=== PATIENT | female | born 1935 | race Caucasian/White ===

== ENCOUNTER → 2016-09-07 | Outpatient (CLI) | payer OTHER, BC | LOC: MMPC 11:11 | PROVIDERS: ATTEND Internal Medicine | DX: M06.9 Rheumatoid arthritis, unspecified (principal); E03.9 Hypothyroidism, unspecified | CPT/HCPCS: 99214; G0463 ==

== ENCOUNTER → 2016-10-29 | Outpatient (CLI) | payer OTHER, BC ==
[2016-10-29 15:11] LABS: BASOPHILS # (AUTO) 0.01 10*3/UL; BASOPHILS % (AUTO) 0.1 % (0-1); EOSINOPHILS # (AUTO) 0.06 10*3/UL; EOSINOPHILS % (AUTO) 0.5 % (0-8); HEMATOCRIT 46.1 % (37.0-47.0); HEMOGLOBIN 14.9 g/dL (12.0-16.0); LYMPHOCYTES # (AUTO) 0.91 10*3/uL; MEAN CORPUSCULAR HEMOGLOBIN 31.9 PG (27-31); MEAN CORPUSCULAR HGB CONC 32.3 g/dL (33-37); MEAN PLATELET VOLUME 10.3 FL (7.4-12.2); MONOCYTES % (AUTO) 3.7 % (5-15); NEUTROPHILS # (AUTO) 9.51 10*3/UL; NEUTROPHILS % (AUTO) 87.2 % (50-80); RED BLOOD COUNT 4.67 10^6/uL (4.20-5.40)
[2016-10-29 15:20] LABS: PLATELET MORPHOLOGY COMMENT NORMAL MORPHOLOGY (NORM); RBC MORPHOLOGY COMMENT NORMAL MORPHOLOGY (NORM); WBC MORPHOLOGY COMMENT NORMAL MORPHOLOGY (NORM)
[2016-10-29 15:34] LABS: C-REACTIVE PROTEIN 0.6 mg/dL (0.0-0.9); CALCIUM 9.6 mg/dL (8.7-10.7); SERUM ALBUMIN 4.1 g/dL (3.5-4.8)
[2016-10-29 16:19] LABS: ERYTHROCYTE SEDIMENTATION RATE 7 MM/HR (0-20)
== END ==
LOC: LAB 14:38
PROVIDERS: ATTEND Internal Medicine
DX: E03.9 Hypothyroidism, unspecified (principal); M06.89 Other specified rheumatoid arthritis, multiple sites
CPT/HCPCS: 36415; 80053; 84443; 85025; 85652; 86140

== ENCOUNTER → 2016-11-02 | Outpatient (CLI) | payer OTHER, BC | LOC: MMPC 11:11 | PROVIDERS: ATTEND Internal Medicine | DX: M06.9 Rheumatoid arthritis, unspecified (principal); I95.1 Orthostatic hypotension | CPT/HCPCS: 99214; G0463 ==

== ENCOUNTER → 2017-01-06 | Outpatient (CLI) | payer OTHER, BC ==
[2017-01-06 16:35] LABS: C-REACTIVE PROTEIN 0.9 mg/dL (0.0-0.9); CALCIUM 9.2 mg/dL (8.7-10.7); SERUM ALBUMIN 3.9 g/dL (3.5-4.8)
== END ==
LOC: MOB LAB 15:03
PROVIDERS: ATTEND Internal Medicine
DX: M80.08XD Age-related osteoporosis with current pathological fracture, vertebra(e), subsequent encounter for fracture with routine healing (principal); M06.89 Other specified rheumatoid arthritis, multiple sites
CPT/HCPCS: 36415; 80053; 85652; 86140; 99214; G0463

== ENCOUNTER → 2017-01-14 | Outpatient (CLI) | payer OTHER, BC | LOC: MMPC 11:11 | PROVIDERS: ATTEND Internal Medicine | DX: M81.0 Age-related osteoporosis without current pathological fracture (principal) | CPT/HCPCS: G0463; J0897 ==

== ENCOUNTER → 2017-02-01 | Outpatient (CLI) | payer OTHER, BC | LOC: MMPC 11:11 | PROVIDERS: ATTEND Internal Medicine | DX: M06.9 Rheumatoid arthritis, unspecified (principal); E03.9 Hypothyroidism, unspecified; C44.310 Basal cell carcinoma of skin of unspecified parts of face | CPT/HCPCS: 99214; G0463 ==

== ENCOUNTER → 2017-02-23 | Outpatient (CLI) | payer OTHER, BC ==
[2017-02-23 15:50] LABS: BASOPHILS # (AUTO) 0.05 10*3/UL; BASOPHILS % (AUTO) 0.7 % (0-1); EOSINOPHILS # (AUTO) 0.35 10*3/UL; EOSINOPHILS % (AUTO) 4.6 % (0-8); HEMATOCRIT 43.6 % (37.0-47.0); HEMOGLOBIN 14.3 g/dL (12.0-16.0); LYMPHOCYTES # (AUTO) 0.95 10*3/uL; MEAN CORPUSCULAR HEMOGLOBIN 30.5 PG (27-31); MEAN CORPUSCULAR HGB CONC 32.8 g/dL (33-37); MEAN PLATELET VOLUME 9.4 FL (7.4-12.2); MONOCYTES # (AUTO) 0.56 10*3/UL (0.3-0.8); MONOCYTES % (AUTO) 7.4 % (5-15); NEUTROPHILS # (AUTO) 5.68 10*3/UL; NEUTROPHILS % (AUTO) 74.5 % (50-80); RED BLOOD COUNT 4.69 10^6/uL (4.20-5.40)
[2017-02-23 15:59] LABS: PLATELET MORPHOLOGY COMMENT NORMAL MORPHOLOGY (NORM); RBC MORPHOLOGY COMMENT NORMAL MORPHOLOGY (NORM); WBC MORPHOLOGY COMMENT NORMAL MORPHOLOGY (NORM)
[2017-02-23 16:58] LABS: ERYTHROCYTE SEDIMENTATION RATE 23 MM/HR (0-20)
== END ==
LOC: LAB 15:28
PROVIDERS: ATTEND Internal Medicine
DX: M06.842 Other specified rheumatoid arthritis, left hand (principal); M06.841 Other specified rheumatoid arthritis, right hand
CPT/HCPCS: 36415; 82150; 82550; 85025; 85652; 86140

== ENCOUNTER → 2017-04-07 | Outpatient (CLI) | payer OTHER, BC | LOC: MMPC 11:11 | PROVIDERS: ATTEND Surgery | DX: L98.9 Disorder of the skin and subcutaneous tissue, unspecified (principal) | CPT/HCPCS: 99212; G0463 ==

== ENCOUNTER 2018-07-20 11:28 | Observation (INO) ==
[2018-07-20 12:34] LABS: BLOOD UREA NITROGEN 13 mg/dL (7-22); SERUM ALBUMIN 4.2 g/dL (3.5-4.8)
[2018-07-20 12:35] LABS: BASOPHILS # (AUTO) 0.01 10*3/UL; BASOPHILS % (AUTO) 0.1 % (0-1); EOSINOPHILS # (AUTO) 0.06 10*3/UL; EOSINOPHILS % (AUTO) 0.7 % (0-8); Hemoglobin [HGB] 14.5 g/dL (12.0-16.0); LYMPHOCYTES # (AUTO) 0.73 10*3/uL; MEAN CORPUSCULAR HGB CONC 32.2 g/dL (33-37); MEAN CORPUSCULAR VOLUME 93.2 FL (81-99); MEAN PLATELET VOLUME 10.1 FL (7.4-12.2); MONOCYTES % (AUTO) 4.8 % (5-15); NEUTROPHILS # (AUTO) 7.07 10*3/UL; NEUTROPHILS % (AUTO) 85.5 % (50-80); RED BLOOD COUNT 4.83 10^6/uL (4.20-5.40)
[2018-07-20 12:45] LABS: PLATELET MORPHOLOGY COMMENT NORMAL MORPHOLOGY (NORM); RBC MORPHOLOGY COMMENT NORMAL MORPHOLOGY (NORM); WBC MORPHOLOGY COMMENT NORMAL MORPHOLOGY (NORM)
--- NOTE | 2018-07-20 12:51 | DI ---
XR HIP COMPLETE MIN 2VW U/L 07/20/2018 12:00 PM History: [facility] [place] DI ^trauma; pain Comparison: 07/15/2006. Findings: AP view of the pelvis and AP/crosstable lateral views of the left hip are submitted. Diffus e demineralization of the osseous structures limits evaluation of fine anatomic detail. There is no e vidence of acute fracture, aggressive bone lesion, or focal periostitis. Alignment is anatomic. There are early degenerative changes of the bilateral hips. There are degenerative changes of the lumbar s pine. Atheromatous vascular calcifications are noted. The soft tissues are otherwise unremarkable. Impression: 1. No acute osseous abnormality. 2. Early degenerative changes of the bilateral hips.
--- NOTE | 2018-07-20 13:12 | DI ---
XR L-SPINE 2-3 VW 07/20/2018 12:01 PM History: [facility] [place] DI ^trauma; fall Comparison: 07/22/2015. Findings: AP and crosstable lateral views of the lumbar spine are submitted. Diffuse demineralization of the osseous structures limits evaluation of fine anatomic detail. There is transitional lumbosacr al anatomy with hypoplastic T12 ribs, and a fused right L5 transverse process, and a pseudarthrosis o n the left at the L5 level. The L5/S1 intervertebral disc space is essentially fused. There is no mitra dence of acute fracture or subluxation. Vertebral body heights are preserved. Early multilevel degen erative endplate changes are noted. Facet arthrosis is most conspicuous in the lower lumbar spine. At heromatous vascular calcifications are present. The visualized soft tissues are otherwise unremarkabl e. Impression: 1. No acute osseous abnormality. 2. Transitional lumbosacral anatomy. 3. Early multilevel degenerative disc disease.
[2018-07-20] MEDS ORDERED: LIDOCAINE HCL 2 % 10 ML JELLY URO-JECT TOPICAL PRN ×2 (13:13→15:42)
[2018-07-20 13:14] LABS: BILIRUBIN,URINE NEGATIVE (NEG); CLARITY,URINE CLEAR (CLEAR); COLOR,URINE YELLOW (Y); GLUCOSE, URINE (UA) NEGATIVE (NEG); OCCULT BLOOD,URINE Trace-intact (NEG); PROTEIN,URINE NEGATIVE (NEG); UROBILINOGEN,URINE 0.2 EU/dL (0.2)
[2018-07-20 13:18] LABS: SQUAMOUS EPITHELIAL CELL,UR FEW; URINE SAMPLE TYPE CATH SPECIMEN
--- NOTE | 2018-07-20 13:30 | EKG ---
[address] [address] Measurements Intervals [place] Rate: 78 P: 80 [place]: 143 QRS: 73 QRSD: 78 T: 71 QT: 400 QTc: 433 Interpretive Statements SINUS RHYTHM VOLTAGE CRITERIA FOR LVH Compared to ECG 02/04/2013 10:12:28 Short [place] interval no longer present T-wave abnormality no longer present Electronically Signed On 07-20-18 14:47:31 MST by Michael Delacruz [email or web address]
--- NOTE | 2018-07-20 14:28 | PDOC ---
Back Pain / Injury HPI - General Chief Complaint: Neck / Back Complaint Stated Complaint: low back and right hip pain Date Seen by Provider: 07/20/18 Time Seen by Provider: 11:15 Source: Patient, EMS, Other () Exam Limitations: POSITIVE: No limitations Nurse's Notes Reviewed & Considered: Yes EMS Report Reviewed & Considered: Verbal - History of Present Illness Initial Comments: The patient is an 82-year-old female who is brought to the emergency room by ambulance. Patient states that she was being helped to the bathroom by her 2 days ago and she lost her balance 10 fell onto her right hip and lower back. She states that since that time she has had pain in her right hip and lower back, mainly the right paralumbar area. She states she has had a great deal of pain getting out of bed and her has had to help her ambulate. She complains of right hip pain with ambulation. She denies any associated head neck chest abdominal or upper extremity trauma or symptoms. Patient states that today she was not able to walk, and so the ambulance was called and the ambulance brought her to the emergency room. 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) Severity: Moderate Quality: REPORTS: "Pain" Context: REPORTS: Fall (From standing position) Location at Time of Onset: REPORTS: Home Modifying Factors: improves with: Palpation, Movement, Walking Associated Symptoms: REPORTS: Back pain, Other (Right hip pain) Similar Symptoms Previously: No Recent Care Received: REPORTS: Denies Any Prior Injuries Related to Current Complaint?: Yes (as above) - Patient Home Medications Home Medications: Home Medications Ca Carbonate/Vitamin D3/Vit K [Viactiv Soft Chew Tablet] 1 ea PO BID 12/13/11 Multivitamins W-Minerals/Lut [Centrum Silver Tablet] 1 tab ORAL QD tab 12/13/11 Cetirizine HCl [Zyrtec] 10 mg PO PRN PRN #30 tab 05/08/15 Diclofenac Sodium [Voltaren] 4 gm TOPICAL QID #1 tube 11/04/15 methotrexate sodium 2.5 mg tablet 2.5 mg PO 2XW tab 02/10/18 metoprolol succinate ER 25 mg tablet,extended release 24 hr 25 mg PO BID #180 tab 02/10/18 omega-3 fatty acids-fish oil 300 mg-1,000 mg capsule 1 cap PO BID cap 02/10/18 levothyroxine 50 mcg tablet 50 mcg PO QDAY #30 tab 03/06/18 folic acid 1 mg tablet 1 mg PO QDAY #30 tab 05/11/18 - Patient Allergies Allergies/Adverse Reactions: Allergies Allergy/AdvReac Type Severity Reaction Status Date / Time nabumetone [Nabumetone] Allergy Intermediate rash Verified 07/20/18 11:40 darifenacin hydrobromide AdvReac Intermediate vertigo Verified 07/20/18 11:40 [From Enablex] simvastatin AdvReac Intermediate muscle Verified 07/20/18 11:40 cramps Past Medical History - heen HEENT History: Cataracts Additional HEENT History: PT WEARS GLASSES Cardiovascular History: Hypertension, Hyperlipidemia Respiratory History: Denies History, Pneumonia Additional Respiratory History: HX OF PNEUMONIA 01/2013 Gastrointestinal History: Diverticulitis Genitourinary History: Denies History Additional Genitourinary History: PT REPORTS HAVING, "A WEAK BLADDER". 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 Blood Disorders: Denies History Psychiatric History: Denies History History of Sexually Transmitted Diseases: No Cancer History: Breast Cancer Treatment / Date(s) of Treatment: LUMPECTOMY 2005 In Past Year Been Physically Harmed or Verbally Threatened: No History of MDRO: No History of Other Communicable Diseases: No Tobacco Use: Former Smoker Alcohol Use: None In the Past 12 Months, Have Used or Abuse Any Substance: None Previous Surgical History: Yes Type / Date of Surgery: CATARACT EXT/ COLONOSCOPY/ RIGHT BREAST LUMPECTOMY WITH SENTINEL NODE BX/ REMOVAL OF OVARIAN CYST/ RHINOPLASTY/ SIGMOID COLECTOMY D/T DIVERTICULITIS Anesthesia Reactions: No Malignant Hyperthermia: No Significant Family History: Heart disease Past Medical History Reviewed: Reviewed - No Changes ROS - Limitations ROS Limitations: No Limitations Constitution: REPORTS: Denies Symptoms Cardiovascular: REPORTS: Denies Cardiac Symptoms Respiratory: REPORTS: Denies Resp Symptoms Neurological: REPORTS: Denies Neuro Symptoms Gastrointestinal: REPORTS: Denies GI Symptoms Endocrine: REPORTS: Denies Symptoms Musculoskeletal: REPORTS: Back Pain (Lower), Joint Pain (Right hip) Genitourinary: REPORTS: Denies Symptoms Eyes: REPORTS: Denies Symptoms ENT: REPORTS: Denies Symptoms Skin: REPORTS: Denies Skin Symptoms Lympathic: REPORTS: Denies Lympathic Symptoms Immunologic: POSITIVE: Denies Symptoms Psychiatric: POSITIVE: Denies Psych Symptoms Back Physical Assessment - General Appearance General Appearance: REPORTS: Alert, Cooperative, No Evidence of Trauma. DENIES: No Acute Distress ([id number] distress due to low back and right hip pain) - HEENT HEENT: POSITIVE: Head Inspection Nml, Eyes Inspection Nml, Ears Inspection Nml, Nose Inspection Nml, Oral/Dental Inspect. Nml, Pharynx Inspect. Nml, PERRL, EOMI - Pupil Size Pupil Size: 4 mm: Bilateral (PERRLA) - Neck Neck: POSITIVE: Non Tender, Painless ROM, Trachea Midline, Nexus Criteria Negative - Respiratory / CVS Respiratory / CVS: POSITIVE: Chest Non Tender, No Ecchymosis, Breath Sounds Normal, No Respiratory Distress, Heart Sounds Normal, Regular Rate/Rhythm - Abdomen Abdomen: Soft: (All Quadrants), Normal Bowel Sounds: (All Quadrants), Denies Tenderness: (All Quadrants), No Splenomegaly: (All Quadrants), No Hepatomegaly: (All Quadrants), No Guarding: (All Quadrants), No Rebound: (All Quadrants), No Palpable Pulse: (All Quadrants), No Palpabale Mass: (All Quadrants), No Distention: (All Quadrants), No Rigidity: (All Quadrants) - Back Back: REPORTS: No CVA Tenderness, Vertebral Pt. Tenderness, Limited ROM, See Diagram. DENIES: Non Tender (Tender on palpation paralumbar area), Painless ROM (Flexion of low back painful), No Vertebral Tenderness, CVA Tenderness (R), CVA Tenderness (L), Muscle Spasm - Skin Skin: REPORTS: Intact, Normal For Race, Warm, Dry, No Rash - Extremities Extremity Assessment: Non-Tender: (RUE), (LUE), (LLE), Normal ROM: (RUE), (LUE), (LLE), No Edema: (ALL), Normal Inspection: (RUE), (LUE), (LLE), No Swelling: (ALL), Pelvis Stable: (ALL), Normal Tendon Exam: (ALL), Tender: (RLE) (hip) Musculoskeletal: REPORTS: Back Pain, Joint Pain (Right hip) Peripheral Pulses: Radial (R): 2+, Radial (L): 2+, Dorsalis-pedis (R): 2+, D orsalis-pedis (L): 2+ - Neurological / Psychological Neuro / Psych: POSITIVE: Oriented X3, 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 Reports no acute fractures on CT scan of pelvis. X-ray lumbosacral spine shows demineralization and degenerative changes with no acute fracture seen. CBC and BMP: 07/20/18 12:07/20/18 12:02 Lab Results:: Laboratory Results 07/20/18 07/20/18 07/20/18 12:02 12:02 13:05 WBC 8.28 RBC 4.83 Hgb 14.5 Hct 45.0 MCV 93.2 MCH 30.0 MCHC 32.2 L RDW Std Deviation 52.4 H RDW Coeff of [place]ard 15.8 H Plt Count 269 MPV 10.1 Immature Gran % (Auto) 0.1 Neut % (Auto) 85.5 H Lymph % (Auto) 8.8 L [place] % (Auto) 4.8 L Eos % (Auto) 0.7 Baso % (Auto) 0.1 Immature Gran # (Auto) 0.01 Neut # (Auto) 7.07 Lymph # (Auto) 0.73 [place] # (Auto) 0.40 Eos # (Auto) 0.06 Baso # (Auto) 0.01 WBC Morphology Comment Normal morphology Plt Morphology Comment Normal morphology RBC Morph Comment Normal morphology Sodium 140 Potassium 5.0 Chloride 104 Carbon Dioxide 30 Anion Gap 6 BUN 13 Creatinine 0.4 L 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 BUN/Creatinine Ratio 32.50 H Glucose 106 Calculated Osmolality 289.0 Calcium 9.6 Total Bilirubin 0.8 AST 37 ALT 18 Alkaline Phosphatase 72 Total Protein 7.2 Albumin 4.2 Globulin 3.1 Albumin/Globulin Ratio 1.30 Ur Collection Type Cath specimen Urine Color Yellow Urine Clarity Clear Urine pH 7.0 Ur Specific [place] 1.015 Urine Protein Negative Urine Glucose (UA) Negative Urine Ketones 15 Urine Occult Blood Trace-intact H Urine Nitrate Negative Urine Bilirubin Negative Urine Urobilinogen 0.2 Ur Leukocyte Esterase Negative Urine RBC 1-3 Urine WBC 1-3 Ur Squamous Epith Cells Few Ur Renal Epithelial Cell None Urine Crystals None Urine Bacteria None Urine Casts None Urine Mucus Many Urine Trichomonas None Urine Yeast None Ur Culture Indicated? Culture not set EKG Interpreted/Reviewed By Me:: Yes (normal) EKG Interpretation:: POSITIVE: Normal Sinus Rhythm, Normal Rate, Normal Intervals, Normal [place], Normal QRS, Normal ST/T - Patient's Progress Re-Examine Time: 14:20 Re-Examine Comment: Results of radiologic and laboratory tests and electrocardiogram discussed with patient. Patient unable to bear weight to use the commode. Alternatives of treatment discussed. I do not feel it is safe to return the patient to home under the care of her frail elderly . Patient is admitted by hospitalist for further evaluation and treatment. Status: POSITIVE: Unchanged, Re-Examined - Consult Consult (If Yes, Name of Consulting MD & Time Called): Yes (Dr. Jorgensen, hospitalist, [id number]) Consulting MD will see pt:: POSITIVE: [facility] [place] [place] Admit Counseled: POSITIVE: Patient, Family, RE: Lab Results, RE: Radiology Results, RE: DX, RE: Need for F/U Patient Care Time - Estimated PCT Patient Care Time (In Minutes): 50 Vital Signs - Recent Vital Signs Vital Signs: Vital Signs (Last 8 hours) Temp Pulse Resp BP Pulse Ox 07/20/18 11:45 97 F 92 18 129/55 96 - VS Reviewed Vital Signs Reviewed: Yes Discharge Clinical Impression: Acute low back pain, Hip pain, Social environment related disease Condition: Fair Follow Up With: MAYKEL EUCEDA [Primary Care Provider] - Date Decision to Admit to Inpatient: 07/20/18 Time Decision to Admit to Inpatient: 14:20
--- NOTE | 2018-07-20 14:58 | DI ---
CT Pelvis WO Contrast 07/20/2018 1:14 PM History: [facility] [place] ^RIGHT HIP PAIN Comparison: Hip x-ray from earlier the same day. Technique: Noncontrast CT images of the pelvis were obtained from the pelvic brim through the lesser trochanters using bone and soft tissue algorithm in the axial, sagittal, and coronal planes. Findings: There is no acute osseous fracture or dislocation. There is no aggressive osseous lesion. E shahid degenerative changes of the bilateral hips are noted. There are degenerative changes of the lumb ar spine. Transitional L5 anatomy is noted with a fused transverse process and the right and a pseudo arthrosis on the left. There is a simple cyst in the lower pole of the right kidney. Hollow viscus organs demonstrate normal course and caliber. There is colonic diverticulosis without CT evidence of acute diverticulitis. The re is no free intraperitoneal air or fluid. The uterus is hypoplastic and the adnexa are unremarkable , though better evaluated with pelvic ultrasound. No pelvic lymphadenopathy is present. Vascular stru ctures are intact with extensive atheromatous calcifications. There is no inguinal or abdominal wall hernia. A Torres catheter is present in the decompressed urinary bladder. Impression: 1. No acute osseous abnormality. 2. Early bilateral hip osteoarthritis.
--- NOTE | 2018-07-20 15:03 | PDOC ---
HPI - History of Present Illness History of Present Illness: Is a very nice 82-year-old female lost her balance 2 days ago while she was a going to the bathroom and fell on the right hip and lower back she is been in excruciating pain since the fall and was brought to the ER by ambulance because she was unable to walk she does complain of pain on the right hip Past Medical History Medical History: Rheumatoid arthritis, hypertension, hyperlipidemia Tobacco Use: Former Smoker In the Past 12 Months, Have Used or Abuse Any of the Following Substance: None Medication / Allergies Home Medications: Home Medications Medication Instructions Recorded Confirmed Type Ca Carbonate/Vitamin D3/Vit K 1 ea PO BID 12/13/11 07/20/18 History [Viactiv Soft Chew Tablet] Multivitamins W-Minerals/Lut 1 tab ORAL QD tab 12/13/11 07/20/18 History [Centrum Silver Tablet] Cetirizine HCl [Zyrtec] 10 mg PO PRN PRN #30 tab 05/08/15 07/20/18 History Diclofenac Sodium [Voltaren] 4 gm TOPICAL QID #1 tube 11/04/15 07/20/18 History methotrexate sodium 2.5 mg tablet 2.5 mg PO 2XW tab 02/10/18 07/20/18 History metoprolol succinate ER 25 mg 25 mg PO BID #180 tab 02/10/18 07/20/18 Rx tablet,extended release 24 hr omega-3 fatty acids-fish oil 300 1 cap PO BID cap 02/10/18 07/20/18 History mg-1,000 mg capsule levothyroxine 50 mcg tablet 50 mcg PO QDAY #30 tab 03/06/18 07/20/18 Rx folic acid 1 mg tablet 1 mg PO QDAY #30 tab 05/11/18 07/20/18 Rx Allergies/Adverse Reactions: Allergies Allergy/AdvReac Type Severity Reaction Status Date / Time nabumetone [Nabumetone] Allergy Intermediate rash Verified 07/20/18 15:29 darifenacin hydrobromide AdvReac Intermediate vertigo Verified 07/20/18 15:29 [From Enablex] simvastatin AdvReac Intermediate muscle Verified 07/20/18 15:29 cramps Review of Systems - Review of Systems All Systems: Reviewed & No Additional Complaints Except as Stated - Respiratory Respiratory: DENIES: Negative System Review, Cough, Sputum, Dyspnea At Rest, Dyspnea with Exertion, Pleuritic Pain, Hemoptysis, Wheezing, Other, See HPI - Cardiovascular Cardiovascular: DENIES: Negative System Review, Chest Pain, Edema, Syncope, Palpitations, Orthopnea, Paroxysmal Nocturnal Dyspnea, Other, See HPI - Musculoskeletal Musculoskeletal: REPORTS: Joint Pain - Hips Exam - Vitals Vital Signs: Vital Signs Temperature 97 F Temperature Source Temporal Artery Scan Pulse Rate [Pulse Oximeter] 92 Respiratory Rate 18 Blood Pressure [Left Arm] 129/55 Pulse Ox 96 Oxygen Delivery Method Room Air Height 5 ft 3 in Weight 130 lb - General General Appearance: Cooperative - Respiratory Respiratory Exam: POSITIVE: Clear to Auscultation - Bilaterally, Breathing Non Labored, Normal To Percussion, Normal to Percussion and Palpation - Cardiovascular Cardiovascular Exam: POSITIVE: RRR, No Murmur, No Clicks, No Gallops, No Rubs, PMI Non-Displaced - GI/Abdominal GI/Abdominal Exam: POSITIVE: Normal Bowel Sounds, Non Tender, Non Distended, Soft, No Masses, No Hepatomegaly, No Splenomegaly, No Organomegaly - Extremities Extremities Exam: POSITIVE: No Clubbing Present, No Edema Present Additional Extremities Exam Details: Right hip pain - Neurological Neurological Exam: POSITIVE: Alert, Oriented x 3, No Facial Droop, Speech Intact / Clear Results - Labs CBC and BMP: 07/20/18 12:02 07/20/18 12:02 Assessment and Plan - Patient Problems (1) Acute low back pain Current Visit: Yes Status: Acute Comment: Admit patient for observation for control consult PTOT hydrate patient is well two-year other home meds Code(s): M54.5 - Low back pain (2) Hip pain Current Visit: Yes Status: Acute Code(s): M25.559 - Pain in unspecified hip (3) Acute low back pain Current Visit: No Status: Acute Onset Date: 12/22/11 Code(s): M54.5 - Low back pain
[2018-07-20] MEDS ORDERED: METHOTREXATE SODIUM 2.5 MG PO SCH (15:36)
[2018-07-20] MEDS ORDERED: DOCUSATE 100 MG CAPSULE PO PRN (15:36)
[2018-07-20] MEDS ORDERED: LIDOCAINE W/ SODIUM BICARB 0.5 ML SYR SUBD PRN (15:36)
[2018-07-20] MEDS ORDERED: MORPHINE SULFATE 2 MG/1 ML IVP PRN (15:36)
[2018-07-20] MEDS ORDERED: CALCIUM CARBONATE 500 MG (TUMS) CHEWABLE TABLET PO PRN (15:36)
[2018-07-20] MEDS ORDERED: ONDANSETRON 4 MG/2 ML VIAL IVP PRN (15:36)
[2018-07-20] MEDS: Lactated Ringers 1,000 ML PRIMARY IV SCH (15:48)
[2018-07-20] MEDS: HYDROcodone-APAP 5 MG -325 MG TABLET PO PRN ×2 (17:31→21:28)
[2018-07-20] MEDS: METOPROLOL SUCCINATE 25 MG SR 24H TABLET PO SCH ×2 (21:28→21:34)
[2018-07-20] MEDS: HEPARIN 5000 UNIT/1 ML SUBCUT SCH (21:28)
[2018-07-21] MEDS: Lactated Ringers 1,000 ML PRIMARY IV SCH ×2 (01:01→11:15)
[2018-07-21] MEDS: HYDROcodone-APAP 5 MG -325 MG TABLET PO PRN (04:08)
[2018-07-21] MEDS: HEPARIN 5000 UNIT/1 ML SUBCUT SCH ×3 (04:28→20:31)
[2018-07-21] MEDS: LEVOTHYROXINE 50 MCG TABLET PO SCH (04:29)
--- NOTE | 2018-07-21 10:20 | PDOC(PROG) ---
Date of Service: 07/21/18 Time of Service: 11:00 Interval History: Subjective Patient was brought to the hospital because she was complaining from pain in the lower back and also in the right hip. She said like 2 days prior she fell backwards and she was complaining from pain in her back she was unable to get up the medics came in and help her to get up. And then she was very unspecific about what happened after that but today she came in she was complaining from pain and she was unable to get up so she was admitted. Currently she is denying pain in the back. She said she received some pain medication earlier. However her main complaint now is dizziness and feeling sick. She did not get up since she's been here. she said she had a history of hydrocephalus. She has a cane and walker at home. She lives with her who seems to have dementia but she said he would do the shopping and the meals for her. She said she doesn't have children but she has a stepdaughter who lives in [place]. Objective : Data - Labs CBC and BMP: 07/20/18 12:02 07/20/18 12:02 Objective : Exam - General General Appearance: No Acute Distress, Cooperative - Head Head Exam: Normal Inspection - Eye Eye Exam: Normal Appearance - ENT ENT Exam: Normal Exam - Neck Neck Exam: Normal Inspection - Respiratory Respiratory Exam: Clear to Auscultation - Bilaterally - Cardiovascular Cardiovascular Exam: RRR - GI/Abdominal GI/Abdominal Exam: Normal Bowel Sounds, Non Tender, Non Distended, Soft, No Organomegaly - Rectal Rectal Exam: Deferred - External Exam: Deferred Exam: Deferred - Extremities Extremities Exam: Normal Inspection Additional Extremities Exam Details: She was able to bend her knees and hips and there is no evidence of pain. - Neurological Neurological Exam: Alert, Oriented x 3, No Facial Droop, Speech Intact / Clear, Moves All Extremities Equally - Psychiatric Psychiatric Exam: Normal Affect Assessment and Plan - Patient Problems (1) Acute low back pain Current Visit: No Status: Acute Onset Date: 12/22/11 Comment: Probably secondary to the fall. There is no evidence of fracture on the x-ray. Because of her symptoms of the dizziness and the sickness I think we'll switch her to tying all. May use Motrin later on. We'll ask PT and OT to work with her. We'll try to get records from Dr. Mensah as she said she had history of hydrocephalus. Did speak with the social media marketing specialist. Code(s): M54.5 - Low back pain (2) Benign hypertension Current Visit: No Status: None Comment: Same medications (3) Hypothyroidism Current Visit: No Status: None Comment: Same medication
[2018-07-21] MEDS: METOPROLOL SUCCINATE 25 MG SR 24H TABLET PO SCH ×2 (10:49→20:33)
[2018-07-21] MEDS: ACETAMINOPHEN 325 MG TABLET PO PRN ×2 (14:12→20:30)
--- NOTE | 2018-07-21 15:07 | PTI REPORT ---
Thank you for the referral of Ness Montes. She was seen on 07/21/18 for an inpatient evaluation secondary to weakness. SUBJECTIVE: The patient is an 82-year-old female who presented to the hospital secondary to a fall in her home. The patient states that she fell and landed on her right hip. She is having right hip and low back pain, but x-rays are negative for any fracture. The patient states that she lives here in [place] with her and they live in a four level house. The patient states that they have many stairs between all the different levels with the most being seven. The patient states that she has a walker on each level as she does have some balance problems, so she primarily uses a front wheeled walker to get around. The patient states that she hasn't had a fall in three years. The patient states that she is pretty dizzy today and it may be due to the medications that she has been having. The patient states that she wants to just rest this morning and does not want to get up. She states that the doctor said it was okay if she does not get out of bed. The patient also states that she does have a hearing issues which she feels is related to her balance, but nothing has been diagnosed. PAST MEDICAL HISTORY: Past medical history can be found in the patient's medical record. OBJECTIVE FINDINGS: General observations: The patient was alert and oriented to setting upon PT arrival. The patient was supine in bed with head of bed elevated. The patient did state that she was having some dizziness earlier today and she was willing to participate with therapy this morning if she did not have to get out of bed. The patient did not have any visible contusions around her right hip region from what PT could see from how she was laying in bed. Strength: Manual muscle testing was performed in a supine position for bilateral lower extremities. The patient demonstrated 4/5 strength in a supine position for bilateral lower extremities. The patient was able to perform a straight leg raise on both the left and the right sides and was able to go up higher on the right lower extremity. ASSESSMENT: The patient has fair rehab potential secondary to her age and compliance with therapy. Problem List: Decreased endurance/activity tolerance Poor balance Generalized weakness Short-Term Goals: To be met by discharge from inpatient: Patient will be able to transfer from bed to stand safely and independently. Patient will be able to ambulate at least 150 feet with front wheeled walker safely and independently. Patient will be able to tolerate 20 minutes of cardiovascular activity in order to improve her overall strength and endurance. Patient will be able to ascend and descend at least 7 steps safely and independently with appropriate assistive device. Long-Term Goals: To be met following discharge from inpatient: Patient may be seen by outpatient physical therapy if deemed necessary upon time of discharge. TREATMENT PLAN: Patient will be seen B.I.D during the week and one time per day over the weekend as an inpatient to address the above goals and objectives. INITIAL TREATMENT: Treatment today consisted of the initial evaluation activities only. GRETA
--- NOTE | 2018-07-21 16:24 | OTI REPORT ---
Thank you for the referral of Ness Montes. She was seen on 07/21/18 for an occupational therapy inpatient evaluation secondary to weakness. SUBJECTIVE: The patient is an 82-year-old female who is being seen secondary to falling at home in the bathroom. The patient reports that she falls at times. Her balance is bad and she thinks it is coming from her hears. The patient gets very dizzy frequently and her balance is off. She states quite frequently she has to hang onto items throughout the home if she is not using her wheeled walker in order to have safety and balance throughout the home. The patient lives in a four level home; however, she typically just utilizes three levels of the home. Prior to admission the patient reports that she was independent with her ADLs. The patient does live at home with her . The patient reports that her is still able to run errands for her. Her states that he can assist the patient. The patient's main complaint is the dizziness. The patient did not want to get out of bed and stated that the doctor said she needed to rest with the change in her medication. PAST MEDICAL HISTORY: Past medical history can be found in the patient's medical record. OBJECTIVE FINDINGS: General observations: The patient was supine in bed upon the therapist's arrival. Range of motion: The patient had within functional limits for active range of motion of her shoulder, elbow, and wrist. Strength: Her left shoulder was weaker than her right. Strength for left shoulder flexion was 3/5, right shoulder flexion was 3+/5, abduction on the left was 3/5, abduction on the right was 3+/5, elbow flexion/extension was 3+/5 on the left and 4/5 on the right, and wrist flexion/extension was 4/5 bilaterally. Pain: The patient reports that she has minimal pain in her upper extremities. The patient rates her pain as a 5/10 on the verbal analog scale (0=no pain, 10=worst pain). Bed mobility: Today the patient was refusing to transfer from supine to sitting edge of bed to assess her ADL skills. ASSESSMENT: It was hard to get a full assessment on the patient this morning. We will continue with more assessment materials this afternoon. The doctor has requested that we do a cognitive evaluation with this patient as there are concerns about her safety and well being at home. The is familiar to the therapist. The 's license should be revoked; however, he is still driving. It is questionable whether the is cognitively capable of caring for the patient. At this point the patient's balance is a concern as well as her description of her balance when the dizziness is there. The patient reports that she has to hang onto counters and other items throughout the home in order to keep her balance. The patient does have some other health concerns as well. It is likely that the patient and her would benefit from an assisted living type facility vs. living on their own. We will further assess this with the patient's cognitive status and further physical assessment. Problem List: Possible decreased cognition Decreased abilities to complete ADLs Dizziness Short-Term Goals: To be met by discharge from inpatient: Patient will increase upper extremity strength to 4+/5 throughout to improve strength for all ADLs and functional activities. Patient will participate in cognitive assessments to further assess her cognitive processing abilities. Patient will be able to complete a toilet transfer and toilet hygiene independently and safely. Patient will complete a shower and all showering tasks with modified independence and safety. Patient will be able to dress upper and lower extremities with increased time and modified independence. Long-Term Goals: To be met following discharge from inpatient: Patient will receive more assistance than what is being provided at this point in time to help her be independent and safe with all of her ADLs and functional tasks at home. TREATMENT PLAN: Patient will be seen B.I.D during the week and one time per day over the weekend as an inpatient to address the above goals and objectives. INITIAL TREATMENT: Treatment today consisted of the initial evaluation followed by bed mobility tasks including range of motion for the shoulders, elbows, and hands. One area that might be of concern is the patient's medication management. GRETA
--- NOTE | 2018-07-21 16:37 | OT.PROG ---
Progress Note Progress Note: Occupational Therapy S: Pt. reports that she currently lives alone with her . At prior level of function pt. reports that she was not driving, she was completing laundry tasks independently and completing about 50% of the cooking tasks. Pt. was able to report dates as to when she moved to [place]. O: Treatment consisted of functional activities followed by completing a cognitive screening test. Pt. demonstrated the ability to complete bed mobility tasks to include moving from supine to sitting EOB with mod. A, max verbal cues, and requiring additional time. Pt. demonstrated the ability to move from sitting EOB to supine with max verbal cues and required max A X 2 to reposition in bed. Cognitive screening scores are as follows: Pt. completed the Mann Cognitive Assessment (MOCA) Visuospatial/executive: 10/17 Namin/3 Attention: 01/18 Language: 10/15 Abstraction: 2 Delayed Recall: 08/19 Orientation: 6 Total Score: 21/30- indicating a mild cognitive impairment Following tx session, was was back in bed with call light and alarms in place. A: Although pt. scored within the mild cognitive range, it is recommended that further, more detailed and functional, cognitive testing be performed with the use of the Cognitive Performance Test to further assess pt.'s cognitive functioning. She struggled significantly with progressing, following 1 or 2 step commands and required all directions to be repeated at least 2 times. Pt. also struggled sequencing simple movement tasks, such as getting in and out of bed and required verbal cues to perform the tasks. At this time, pt. continues to benefit from skilled therapy to improve strength, improve safety and for further cognitive assessment prior to discharge to home. P: Continue with further cognitive testing. BETTINA Alvarado
--- NOTE | 2018-07-21 17:08 | PT.PROG ---
Progress Note Progress Note: S. Patient agreed to performed exercises this afternoon. O. Patient performed heel slides, quad sets, ankle pumps and straight leg raises all x 10 bilaterally, patient performed sit to stand x 3 and stood x 2 minutes. Patient was left with OT for further therapy. A. Patient requires frequent verbal cues to complete exercises and motivation to stand. Patient is weak and very fearful of standing at this time. Patient would continue to benefit from skilled therapy to increase strength, endurance and safety. P. Continue POC.
[2018-07-22] MEDS ORDERED: QUEtiapine Tab 25 MG TAB PO ONE (02:48)
[2018-07-22] MEDS: ACETAMINOPHEN 325 MG TABLET PO PRN ×2 (04:06→18:24)
[2018-07-22] MEDS ORDERED: HALOPERIDOL LACTATE 5 MG/1 ML AMPULE IVP ONE (04:14)
[2018-07-22] MEDS: HEPARIN 5000 UNIT/1 ML SUBCUT SCH ×3 (04:33→21:09)
[2018-07-22] MEDS: LEVOTHYROXINE 50 MCG TABLET PO SCH (08:05)
[2018-07-22] MEDS ORDERED: MAGNESIUM 400 MG/5 ML - 30 ML (MILK OF MAGNESIA) PO PRN (08:55)
--- NOTE | 2018-07-22 08:56 | PDOC(PROG) ---
Date of Service: 07/22/18 Time of Service: 09:00 Interval History: Subjective No more nausea vomiting today. She is complaining from constipation. She is also complaining still from low back pain. She said it's worse when she got up earlier. She is a 1 person assist. She was agitated last night and the he seemed to be better today. Complaining from blocked nose. Her nurse tried to give her Seroquel she refused and we ended up giving her Haldol. Objective : Data - Labs CBC and BMP: 07/20/18 12:02 07/20/18 12:02 Objective : Exam - General General Appearance: No Acute Distress, Cooperative - Head Head Exam: Normal Inspection - Eye Eye Exam: Normal Appearance - ENT ENT Exam: Normal Exam - Neck Neck Exam: Normal Inspection - Respiratory Respiratory Exam: Clear to Auscultation - Bilaterally - Cardiovascular Cardiovascular Exam: RRR - GI/Abdominal GI/Abdominal Exam: Normal Bowel Sounds, Non Tender, Non Distended, Soft, No Organomegaly - Rectal Rectal Exam: Deferred - External Exam: Deferred - Extremities Extremities Exam: Normal Inspection - Back Back Exam: Normal Inspection - Neurological Additional Neurological Exam Details: She is awake, she couldn't tell me the day, she knew the month and the year. She knew her date of . She knows where she is. - Psychiatric Psychiatric Exam: Normal Affect - Integumentary Integumentary Exam: Normal Color Assessment and Plan - Patient Problems (1) Acute low back pain Current Visit: No Status: Acute Onset Date: 12/22/11 Comment: Continue Tylenol, I wrote for ibuprofen. We did stop the hydrocodone as she was complaining from nausea and dizziness yesterday she did not complain from those today. The issue now is safety and her ability to function at home before she would be able to go home. Currently complication the picture is the fact they don't have any body that's help them in town her has advanced dementia. She had an assessment done by the OT for her mental function she scored 21 out of 30. She'll have a another assessment on Tuesday for more deeper assessment. Code(s): M54.5 - Low back pain (2) Benign hypertension Current Visit: No Status: None Comment: Same med (3) Hypothyroidism Current Visit: No Status: None Comment: Same med (4) Normal pressure hydrocephalus syndrome Current Visit: No Status: Acute Onset Date: 01/06/17 Comment: I did obtain records from Dr. Mensah and she had this diagnosis made. Apparently she had a large volume LP before. Last note from 2016 he did tell her about BALANCE SHEET ANALYST shunt and she was supposed to think about it. Apparently she is not interested in doing it Code(s): G91.2 - (Idiopathic) normal pressure hydrocephalus
[2018-07-22] MEDS: FOLIC ACID 1 MG TABLET PO SCH (09:40)
[2018-07-22] MEDS: IBUPROFEN 400 MG TABLET PO PRN ×2 (09:40→21:16)
[2018-07-22] MEDS: METOPROLOL SUCCINATE 25 MG SR 24H TABLET PO SCH ×2 (09:40→21:09)
[2018-07-22] MEDS: FLUTICASONE PROPIONATE 16 GRAM (120 SPRAYS / BOTTLE) ENOS SCH (09:40)
[2018-07-22] MEDS ORDERED: QUEtiapine Tab 25 MG TAB PO SCH (21:00)
[2018-07-23] MEDS: ACETAMINOPHEN 325 MG TABLET PO PRN (00:10)
[2018-07-23] MEDS: HEPARIN 5000 UNIT/1 ML SUBCUT SCH ×3 (04:31→20:47)
[2018-07-23] MEDS: LEVOTHYROXINE 50 MCG TABLET PO SCH (04:31)
--- NOTE | 2018-07-23 09:28 | PDOC(PROG) ---
Date of Service: 07/23/18 Time of Service: 09:30 Interval History: Subjective She feels better today compared to yesterday. She did have a bowel movement last night. Back pain seemed to be better today compared to yesterday. No vomiting. Objective : Data - Labs CBC and BMP: 07/20/18 12:02 07/20/18 12:02 Objective : Exam - General General Appearance: No Acute Distress, Cooperative - Head Head Exam: Normal Inspection - Eye Eye Exam: Normal Appearance - ENT ENT Exam: Normal Exam - Neck Neck Exam: Normal Inspection - Respiratory Respiratory Exam: Clear to Auscultation - Bilaterally - Cardiovascular Cardiovascular Exam: RRR - GI/Abdominal GI/Abdominal Exam: Normal Bowel Sounds, Non Tender, Non Distended, Soft - Rectal Rectal Exam: Deferred - External Exam: Deferred Exam: Deferred - Extremities Extremities Exam: Normal Inspection - Back Back Exam: Normal Inspection - Neurological Neurological Exam: Alert, Oriented x 3, CN II-XII Intact, No Facial Droop, Speech Intact / Clear, Moves All Extremities Equally - Psychiatric Psychiatric Exam: Normal Affect Assessment and Plan - Patient Problems (1) Acute low back pain Current Visit: No Status: Acute Onset Date: 12/22/11 Comment: Seems to be improving. Continue current anti-inflammatory and Tylenol as needed. Continue PT and OT. I did tell her that we will keep her another night will wait for the OT/PT assessment tomorrow and the program services planner to arrange for help at home in case she is cleared by OT and PT to go home. Code(s): M54.5 - Low back pain (2) Benign hypertension Current Visit: No Status: None Comment: Same med (3) Hypothyroidism Current Visit: No Status: None Comment: Same med (4) Normal pressure hydrocephalus syndrome Current Visit: No Status: Acute Onset Date: 01/06/17 Comment: She declined surgery according to the note from before. Code(s): G91.2 - (Idiopathic) normal pressure hydrocephalus
[2018-07-23] MEDS: FLUTICASONE PROPIONATE 16 GRAM (120 SPRAYS / BOTTLE) ENOS SCH (09:33)
[2018-07-23] MEDS: FOLIC ACID 1 MG TABLET PO SCH (09:33)
[2018-07-23] MEDS: METOPROLOL SUCCINATE 25 MG SR 24H TABLET PO SCH ×2 (09:33→20:45)
--- NOTE | 2018-07-23 11:07 | PT.PROG ---
Progress Note Progress Note: S: Pt. states she doesn't want to do much. O: Treatment consisted of therapeutic exercises: sit to stands x 5, ambulated to bathroom and back and was able to complete hygiene independently, ankle pumps, 3 way ankle, laq, and seated marches. A: Pt. does require mod assist 1 with most activities. She is deviant at time with exercises. P: Continue per POC to increase strength and activity tolerance. Wendi Kothari, CRIMINAL ANALYST
[2018-07-24] MEDS: LEVOTHYROXINE 50 MCG TABLET PO SCH (05:12)
[2018-07-24] MEDS: HEPARIN 5000 UNIT/1 ML SUBCUT SCH ×2 (05:12→14:06)
[2018-07-24] MEDS: ACETAMINOPHEN 325 MG TABLET PO PRN (05:28)
--- NOTE | 2018-07-24 08:06 | PT.PROG ---
Progress Note Progress Note: S: Pt. states she is hesitant to perform exercises. O: Treatment consisted of functional activities: ambulated in room to bathroom, static standing at sink to wash hands and face and brush hair. Ambulated out of room approx 10 feet out of room and ambulated back to bed, sit to stands x 5 and UE rom in all planes x 5. A: Pt. is hesitant to perform activities, but overall does well when motivated. P: Continue per POC to increase strength and activity tolerance. Wendi Kothari, STITCHING MACHINE OPERATOR
[2018-07-24] MEDS: FLUTICASONE PROPIONATE 16 GRAM (120 SPRAYS / BOTTLE) ENOS SCH (08:33)
[2018-07-24] MEDS: METOPROLOL SUCCINATE 25 MG SR 24H TABLET PO SCH (08:33)
[2018-07-24] MEDS: FOLIC ACID 1 MG TABLET PO SCH (08:34)
[2018-07-24] MEDS: IBUPROFEN 400 MG TABLET PO PRN (12:46)
--- NOTE | 2018-07-24 13:50 | DCSUMMARY ---
Hospitalization Summary Admit Date: 07/20/2018 Discharge Date: 07/24/18 Hospital Course: Discharge diagnoses 1. Fall 2. Acute back pain secondary to fall improved, no evidence of fracture on CT. 3. History of rheumatoid arthritis 4. History of hypertension 5. History of normal pressure hydrocephalus 6. Mild cognitive impairment Hospital course This is an 82 years old female with medical history significant for history of hypertension, rheumatoid arthritis, hypothyroidism and normal pressure hydrocephalus who was brought to the hospital for evaluation because of right hip and low back pain that happened after a fall. Apparently she slipped and fell backward 2 days prior to her presentation. Apparently that day she called the medics who helped her to get up but she didn't come to the ER then she continued to have pain because of that they brought her to the hospital. A CT of the pelvis did not show evidence of fracture. She continued to complain from pain and needed help to get up so she was admitted. She was admitted by Dr. Jorgensen please see his note. Patient initially was put on hydrocodone for pain control however she started to vomit and felt dizzy, so when I saw her the next day so we decided to stop the hydrocodone and put her on plain Tylenol and Motrin for pain. She started physical therapy. There was a concern about her ability to function at home. So she had a cognitive evaluation by OT and she fall into the category of mild cognitive impairment. The recommendation was either assisted living or home health and help at home. The patient was resistant to the idea about assisted living as she said her would not accept that. Her suffers from dementia. They don't have any family here. She was okay though with getting more help at home. The meeting planner is working on her getting help at home. on The day of discharge she did well with physical therapy using stairs and they felt she can be cleared to go home. so she was discharged home. We'll try to get her home health services. Discharge instructions Diet regular Activity as started Medications Current Medication(s) Medication Instructions Recorded Confirmed Type Ca Carbonate/Vitamin D3/Vit K 1 ea PO BID 12/13/11 07/20/18 History [Viactiv Soft Chew Tablet] Multivitamins W-Minerals/Lut 1 tab ORAL QD tab 12/13/11 07/20/18 History [Centrum Silver Tablet] Cetirizine HCl [Zyrtec] 10 mg PO PRN PRN #30 tab 05/08/15 07/20/18 History Diclofenac Sodium [Voltaren] 4 gm TOPICAL QID #1 tube 11/04/15 07/20/18 History methotrexate sodium 2.5 mg tablet 2.5 mg PO 2XW tab 02/10/18 07/20/18 History metoprolol succinate ER 25 mg 25 mg PO BID #180 tab 02/10/18 07/20/18 Rx tablet,extended release 24 hr omega-3 fatty acids-fish oil 300 1 cap PO BID cap 02/10/18 07/20/18 History mg-1,000 mg capsule levothyroxine 50 mcg tablet 50 mcg PO QDAY #30 tab 03/06/18 07/20/18 Rx folic acid 1 mg tablet 1 mg PO QDAY #30 tab 05/11/18 07/20/18 Rx Acetaminophen [Tylenol] 650 mg PO Q6H PRN tab 07/24/18 Rx Follow-up with PCP in 1-2 weeks Condition at discharge was stable for discharge Exam - Vitals Vital Signs: Vital Signs Temperature 97.8 F Temperature Source Temporal Artery Scan Pulse Rate [Apical] 72 Pulse Rate [Pulse Oximeter] 83 Respiratory Rate 18 Blood Pressure [Left Arm] 119/54 Pulse Ox 95 Oxygen Delivery Method Room Air Height 5 ft 3 in Weight 130 lb - General General Appearance: No Acute Distress - Head Head Exam: Normal Inspection - ENT ENT Exam: POSITIVE: Normal Exam - Neck Neck Exam: Normal Inspection - Respiratory Respiratory Exam: POSITIVE: Clear to Auscultation - Bilaterally - Cardiovascular Cardiovascular Exam: POSITIVE: RRR - GI/Abdominal GI/Abdominal Exam: POSITIVE: Normal Bowel Sounds, Non Tender, Non Distended, Soft, No Organomegaly - Rectal Rectal Exam: POSITIVE: Deferred - External Exam: POSITIVE: Deferred Exam: POSITIVE: Deferred - Extremities Extremities Exam: POSITIVE: Normal Inspection - Back Back Exam: POSITIVE: Normal Inspection - Neurological Neurological Exam: POSITIVE: Alert, Oriented x 3, CN II-XII Intact, No Facial Droop, Speech Intact / Clear, Moves All Extremities Equally - Psychiatric Psychiatric Exam: POSITIVE: Normal Affect - Integumentary Integumentary Exam: POSITIVE: Normal Color Patient Problems - Patient Problem List (1) Acute low back pain Status: Acute Onset Date: 12/22/11 Comment: pain is of recent onset and controlled with minimal medication. Code(s): M54.5 - Low back pain Category: Medical (2) Benign hypertension Status: None Category: Medical (3) Hypothyroidism Status: None Category: Medical (4) Normal pressure hydrocephalus syndrome Status: Acute Onset Date: 01/06/17 Code(s): G91.2 - (Idiopathic) normal pressure hydrocephalus Category: Medical
--- NOTE | 2018-07-24 14:14 | PT.PROG ---
Progress Note Progress Note: S. Patient stated that she has a lot of stairs at home. O. Patient ambulated 50 feet to the stair well and ascended and descended 11 stairs then ambulated 175 feet back to her room where she was left in bed with alarm and call light. A. Patient was able to perform ambulation and stairs with min assist, she desc ended the stairs backwards and reported that is how she does the stairs at home. She would benefit from assistance at home. P. Continue POC until Discharge.
--- NOTE | 2018-07-24 14:41 | OT.PROG ---
Progress Note Progress Note: S: pt stated that she did not need testing and was not going to go downstairs for therapy. pt agreed to therapy testing for her preparation to d/c home and agreed to therapy in her room. O: tx consisted of CPT testing in the areas of medication, shopping and money management and use of phone to obtain specific information. pt scored a 4.5 in medication where pt was unable to comprehend medication instructions that stated to take medication twice a day. pt scored a 5.0 in money management where pt was able to pick out appropriate items but could not tell where he prices where. pt scored a 5.0 with the phone use where pt was able to locate the number needed but was unable to remember parts of the number when dialing. A: pt does well with functional tasks and tasks that are in her daily routine. when new information is presented to her, pt will avoid it and not address it. pt is unable to process information at a normal or close to normal rate. pt needed to repeat and reread information approximately 3-5 times before some comprehension. recommendations of in home services for pt and her spouse have b een passed onto the nursing staff and pts doctor. P: continue POC
== END 2018-07-24 15:24 | disposition home or self-care (01) ==
LOC: ER 11:28 → MED/SURG 11:28
PROVIDERS: ADMIT Internal Medicine; ATTEND Internal Medicine

== ENCOUNTER 2018-10-19 13:08 | Observation (INO) ==
[2018-10-19] MEDS ORDERED: Sodium Chloride 0.9% 1,000 ML PRIMARY IV ONE (13:13)
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
--- NOTE | 2018-10-19 13:49 | DI ---
AP CHEST X-RAY, 10/19/2018 1:13 PM : Clinical History: Anorexic. Previous Exam: 01/16/2013. Soft Tissues: No acute soft tissue abnormality. Bones: Normal. Heart: Normal heart. Lungs: No infiltrates. Effusion(s): None. Mediastinum: Normal mediastinum. Nodules: No pulmonary nodules. Reading: Normal chest x-ray.
[2018-10-19 13:55] LABS: BASOPHILS # (AUTO) 0.01 10*3/UL; BASOPHILS % (AUTO) 0.1 % (0-1); EOSINOPHILS # (AUTO) 0.13 10*3/UL; EOSINOPHILS % (AUTO) 1.9 % (0-8); Hematocrit [HCT] 43.7 % (37.0-47.0); LYMPHOCYTES # (AUTO) 0.84 10*3/uL; MEAN CORPUSCULAR HEMOGLOBIN 29.4 PG (27-31); MEAN CORPUSCULAR VOLUME 91.8 FL (81-99); MEAN PLATELET VOLUME 9.1 FL (7.4-12.2); MONOCYTES # (AUTO) 0.52 10*3/UL (0.3-0.8); MONOCYTES % (AUTO) 7.6 % (5-15); NEUTROPHILS # (AUTO) 5.35 10*3/UL; NEUTROPHILS % (AUTO) 77.9 % (50-80); RED BLOOD COUNT 4.76 10^6/uL (4.20-5.40)
[2018-10-19 13:56] LABS: PLATELET MORPHOLOGY COMMENT NORMAL MORPHOLOGY (NORM); RBC MORPHOLOGY COMMENT NORMAL MORPHOLOGY (NORM); WBC MORPHOLOGY COMMENT NORMAL MORPHOLOGY (NORM)
--- NOTE | 2018-10-19 14:04 | EKG ---
[address] [address] Measurements Intervals [place] Rate: 87 P: 88 WA: 126 QRS: 81 QRSD: 82 T: 95 QT: 367 QTc: 412 Interpretive Statements SINUS RHYTHM BASELINE ARTIFACT MINIMAL VOLTAGE CRITERIA FOR LVH, Compared to ECG 07/20/2018 13:30:18 No significant changes Electronically Signed On 10-19-18 16:38:21 MST by Michael Delacruz [email or web address]
[2018-10-19 14:10] LABS: VENOUS PH 7.44 (7.32-7.42)
[2018-10-19 14:12] LABS: BLOOD UREA NITROGEN 17 mg/dL (7-22); LIPASE 135 IU/L (23-300); SERUM ALBUMIN 3.6 g/dL (3.5-4.8)
[2018-10-19 14:39] LABS: Erythrocyte Sediment Rate 44 MM/HR (0-20)
[2018-10-19] MEDS ORDERED: LIDOCAINE HCL 2 % 10 ML JELLY URO-JECT TOPICAL PRN (15:00)
[2018-10-19 15:12] LABS: BILIRUBIN,URINE NEGATIVE (NEG); CLARITY,URINE CLEAR (CLEAR); COLOR,URINE YELLOW (Y); GLUCOSE, URINE (UA) NEGATIVE (NEG); PROTEIN,URINE NEGATIVE (NEG); UROBILINOGEN,URINE 0.2 EU/dL (0.2)
[2018-10-19 15:15] LABS: URINE SAMPLE TYPE CLEAN CATCH URINE
[2018-10-19 16:14] LABS: OCCULT BLOOD,URINE SMALL (NEG)
[2018-10-19 16:15] LABS: WBC,URINE 0-3
[2018-10-19 16:16] LABS: URINE CRYSTALS MANY
--- NOTE | 2018-10-19 16:53 | OTI REPORT ---
Thank you for the referral of Ness Montes. She was seen on 10/19/18 for an occupational therapy evaluation. SUBJECTIVE: The patient is an 83-year-old female. The patient was admitted along with her . The tie fastener states that she is having more difficulty physically getting up and around in her home. She basically stays in bed most of the day. The patient probably is more so the one that can take care of some of the cognitive tasks, but she has also demonstrated a big decline over this past year in being able to care for herself as well as her . PAST MEDICAL HISTORY: Past medical history can be found in the patient's medical record. OBJECTIVE FINDINGS: The patient was assessed with the Mann Cognitive Assessment (MoCA) and the results are as follows: Visuospatial/Executive: 2/5. The patient did not draw contour on the clock and put a dot above the 11 and stated that it was 10 past 11. Namin/3 Attention: 4/6 Language: 2/3 Abstraction: 0/2 Delayed recall/Memory: 4/5 Orientation: 6/6 This gave the patient a total combined score of 18/30 which puts her just on the borderline between MODERATE and MILD cognitive impairment, but she is in the MODERATE cognitive impairment category. According to assessment, this score indicates possible start of dementia/Alzheimer's. ASSESSMENT: The patient has more cognitive abilities than her who was assessed as well; however, she still is demonstrating some difficulties with tasks. She may benefit from a further comprehensive cognitive evaluation such as a Cognitive Performance Test to see how she would do in functional realms such as medication management, financial assistance specialist, and other daily tasks to gauge her processing abilities. The patient is demonstrating possible difficulties taking care of self in the cognitive realm; however, physical abilities were not assessed today as the cognitive testing was the main goal of staff. It sounds like she is having increased difficulty and mainly stays in bed most of the day and is having difficulty getting around on her own. This may also contribute to having difficulty caring for self. INITIAL TREATMENT: Treatment today consisted of the initial evaluation activities only. GRETA
[2018-10-19] MEDS ORDERED: Sodium Chloride 0.9% 1,000 ML, Magnesium Sulfate 2gm (Premix) 50 ML with Multivitamin I... IV ONE ×5 (17:48)
[2018-10-19] MEDS ORDERED: Sodium Chloride 0.9% 1,000 ML with Multivitamin Inj 10 ML, Thiamine Inj 100 MG, Folic A... IV ONE ×5 (18:30)
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
[2018-10-19] MEDS ORDERED: ONDANSETRON 4 MG/2 ML VIAL IVP PRN (19:52)
[2018-10-19] MEDS ORDERED: LIDOCAINE W/ SODIUM BICARB 0.5 ML SYR SUBD PRN (19:52)
[2018-10-19] MEDS ORDERED: CALCIUM CARBONATE 500 MG (TUMS) CHEWABLE TABLET PO PRN (19:52)
[2018-10-19] MEDS ORDERED: DOCUSATE 100 MG CAPSULE PO PRN (19:52)
[2018-10-19] MEDS: METOPROLOL SUCCINATE 25 MG SR 24H TABLET PO SCH (20:32)
[2018-10-20] MEDS: ACETAMINOPHEN 325 MG TABLET PO PRN ×3 (00:18→20:49)
[2018-10-20] MEDS: LEVOTHYROXINE 50 MCG TABLET PO SCH (04:39)
[2018-10-20] MEDS: METOPROLOL SUCCINATE 25 MG SR 24H TABLET PO SCH ×2 (08:31→20:45)
[2018-10-20] MEDS: FOLIC ACID 1 MG TABLET PO SCH (08:31)
[2018-10-20] MEDS ORDERED: MULTIVITAMINS W MINERALS ORAL SCH (09:00)
[2018-10-20] MEDS ORDERED: LUT ORAL SCH (09:00)
--- NOTE | 2018-10-20 12:57 | OTI REPORT ---
Thank you for the referral of Ness Montes. She was seen on 10/20/18 for an occupational therapy inpatient evaluation secondary to decreased ability to care for self. SUBJECTIVE: The patient is an 83-year-old female who is being seen secondary to being admitted for decreased ability to care for self. Yesterday in the emergency room the therapist did see the patient for a MoCA assessment. The patient scored 18/30. The patient does tend to repeat the same things over and over when in conversation. Per Officer Ac's report, the patient is having increased difficulty caring for self. She lays in bed most of the time and has difficulty getting in and out of bed. When trying to stand up today, the patient repeated several times "I'm going to fall and crack the back of my head. I have done that a lot". She was very worried about her feet slipping. She had a lot of fear of standing and walking. PAST MEDICAL HISTORY: Past medical history can be found in the patient's medical record. OBJECTIVE FINDINGS: General observations: The patient was laying in bed upon the therapist's arrival. Bed mobility: The patient needed min assist to come from supine to sit. When sitting edge of bed the patient tended to lean backward and had difficulty keeping her sitting balance for long periods of time. She needed mod assist to scoot from the middle of the bed to the edge of the bed. Range of motion: Active range of motion of the upper extremities demonstrated 0 to 120 degrees of shoulder flexion bilaterally. Elbow flexion/extension and wrist flexion/extension were within normal limits. Strength: Strength for shoulder flexion was 3+/5, abduction was 3+/5, elbow flexion was 3+/5, elbow extension was 3/5, and wrist flexion/extension was 3+/5. Transfers: The patient needed a lot of verbal cues and a lot of encouragement to transfer from sit to stand. She demonstrated a lot of fear of standing and kept reporting that she was going to fall and stating that she didn't have the strength to stand up. She stated two people wasn't enough to help her walk. The patient was able to come from sit to stand with mod assist with use of gait belt. Once standing she required hand hold assist x2. Ambulation: The patient has a shuffled gait pattern and did not take large steps. She had minimal bend in her knees and ambulated 10 feet to the bathroom. The patient kept saying "I'm going too fast", even though the therapist and the nurse were helping her at a very slow rate. She needed max assist to turn around to get on the toilet. Activities of daily living: Once on the toilet the patient said she had to have a bowel movement. She did just have gas and stated that she was done. The patient required mod assist for wiping self. The therapist had the patient practice trying to stand up by herself from a high rise commode that was sitting over the toilet. The patient attempted to stand up 5 times and was not able to do so on her own. She needed mod assist as well as verbal cues to stand up safely and appropriately. The patient then ambulated 15 feet around her bed to the chair. She demonstrated a lot of fear when doing this and stated she was going to fall. She needed multiple verbal cues to keep her head in an upright position to see where she was walking. She had complaints of her arms hurting a lot when therapist and nurse was assisting her with the walking. Once the patient was to the chair she needed mod assist and verbal cues in order to turn and sit in the chair. Once in the chair, she was not necessarily happy to be there, but she needed to sit up as we are worried about her laying in bed all day secondary to her weakness and the patient having a higher risk of catching things such as pneumonia. The patient was not able to don/doff socks today as she said it hurt her back too much. She was dependent with donning socks and shoes. ASSESSMENT: The patient requires a lot of assistance for initiation of tasks and the patient has definite decreased physical abilities to care for self at this point in time. She needed multiple attempts and mod assist to come from sit to stand off of a bed and a higher toilet seat. The patient shuffles quite a bit and she is very rigid when she ambulates. The patient required max assist/dependent for lower extremity dressing and had a lot of difficult bending and donning/doffing socks and shoes. Short-Term Goals: To be met by discharge from inpatient: Patient will be able to dress lower extremities with min assist. Patient will be able to ambulate to the bathroom and complete a toilet transfer with contact guard assist. Patient will increase upper extremity strength to 4/5. Long-Term Goals: To be met following discharge from inpatient: Patient will be discharged with 24-hour care for ADLs, functional transfers, functional tasks, and physical tasks. TREATMENT PLAN: Patient will be seen B.I.D during the week and one time per day over the weekend as an inpatient to address the above goals and objectives. INITIAL TREATMENT: Treatment today consisted of the initial evaluation followed by the patient functionally transferring to the bathroom and back with assistance as listed above. The patient requires a lot of time as she tends to try to veer away from trying to do any transfers or anything that she is fearful of, even when there is a lot of assistance available. She does tend to "talk in circles" or rationalize every detail of why she does not want to engage in tasks asked of her when therapists and/or nursing is trying to have her engage in tasks. This tends to be a very limiting factor. Following treatment the patient was left in chair. Chair alarm was set and call light was left within reach. MTDD
--- NOTE | 2018-10-20 15:16 | PDOC(PROG) ---
Date of Service: 10/20/18 Time of Service: 13:00 Interval History: Subjective No new symptoms. Did talk to her about pulling the catheter out she refused. The nursing staff said that she needed help to stand up. She seems to be doing okay with walking. She needs her walker. Objective : Data - Labs CBC and BMP: 10/19/18 13:45 10/19/18 13:45 Objective : Exam - General General Appearance: No Acute Distress, Cooperative - Head Head Exam: Normal Inspection - Eye Eye Exam: Normal Appearance - ENT ENT Exam: Normal Exam - Neck Neck Exam: Normal Inspection - Respiratory Respiratory Exam: Clear to Auscultation - Bilaterally - Cardiovascular Cardiovascular Exam: RRR - GI/Abdominal GI/Abdominal Exam: Normal Bowel Sounds, Non Tender, Non Distended, Soft - Rectal Rectal Exam: Deferred - External Exam: Deferred - Extremities Extremities Exam: Normal Inspection Assessment and Plan - Patient Problems (1) Weakness Current Visit: No Status: Acute Comment: Continue PT and OT. We did tell her that's we are waiting for DFS papers that they submit to the court, she had lots of question we advised her to wait for the final answer from DFS and the court. We did explain that the reason that she is here and her because of concern about her safety. I'm not sure whether it's her personality or her cognitive impairment but she seems not get the fact that they can't function at home. Code(s): R53.1 - Weakness (2) Hypothyroidism Current Visit: No Status: Acute Onset Date: 02/01/17 Comment: Same medication Code(s): E03.9 - Hypothyroidism, unspecified (3) Benign hypertension Current Visit: No Status: None Comment: Same medications
--- NOTE | 2018-10-20 16:47 | OT.PROG ---
Progress Note Progress Note: Pt. refused occupational therapy this afternoon X2. She reported that she had too many phone calls to make, including one to the police. She reported she had sat up too much earlier and her back hurt. After several different ways to attempt having patient participate, she refused and would not participate.
--- NOTE | 2018-10-20 16:51 | PT.PROG ---
Progress Note Progress Note: Patient refused PT this afternoon x 2, she reported she had too many phone calls to get done before the weekend and did not have time for therapy. When attempted later in the day she reported nursing had gotten her up to the bathroom and she was too tired.
[2018-10-20] MEDS ORDERED: SODIUM CHLORIDE 44 ML SPRAY ENOS PRN (23:13)
[2018-10-20] MEDS: IBUPROFEN 400 MG TABLET PO PRN (23:36)
[2018-10-21] MEDS: LEVOTHYROXINE 50 MCG TABLET PO SCH (04:44)
[2018-10-21] MEDS: FOLIC ACID 1 MG TABLET PO SCH (09:11)
[2018-10-21] MEDS: METOPROLOL SUCCINATE 25 MG SR 24H TABLET PO SCH ×2 (09:11→20:06)
[2018-10-21] MEDS: Beta Carot W/Vit E,C,Min Tab 1 TAB TAB PO SCH (09:12)
--- NOTE | 2018-10-21 10:23 | PT.PROG ---
Progress Note Progress Note: S: Pt. states she is doing ok. c/o soreness with bed mobility, but agrees to get up. O: Treatment consisted of functional activities: bed mobility with mod assist x 1 from supine to sit, edge of bed scooting with min assist x 1, sit to stand min assist x 1. Pt. then ambulated approx 18 feet x 1 with use of fww and min assist x 1 with forward flexed trunk and cuing for safety. She then required mod assist x 2 for transfer from sit to supine and adjusting in bed. Pt. was placed supine in bed with bed alarm, call button and nursing notified. A: Pt. overall performed activities with minimal encouragement today. She is weak and require assist for bed mobility and ambulating. She will continue to benefit from skilled therapeutic intervention to address these concerns. She continues to be unsafe for d/c home at this time. P: Continue per POC to increase strength and activity tolerance. Wendi Kothari, OFFICE SERVICE COORDINATOR
--- NOTE | 2018-10-21 11:51 | PDOC(PROG) ---
Date of Service: 10/21/18 Interval History: Subjective On talking to the nursing staff patient did not sleep last night. She was diff icult so the nursing staff. After she slipped this morning she seemed to be calm now. She ask about going home. Did explain to her that we are waiting for the court hearing apparently it's on Tuesday Objective : Data - Labs CBC and BMP: 10/19/18 13:45 10/19/18 13:45 Objective : Exam - General General Appearance: No Acute Distress, Cooperative - Head Head Exam: Normal Inspection - Eye Eye Exam: Normal Appearance - ENT ENT Exam: Normal Exam - Neck Neck Exam: Normal Inspection - Rectal Rectal Exam: Deferred - External Exam: Deferred - Extremities Extremities Exam: Normal Inspection - Back Back Exam: Normal Inspection - Neurological Neurological Exam: Alert, CN II-XII Intact, No Facial Droop, Speech Intact / Clear, Moves All Extremities Equally - Psychiatric Psychiatric Exam: Normal Affect Assessment and Plan - Patient Problems (1) Weakness Current Visit: No Status: Acute Comment: Continue PT and OT Code(s): R53.1 - Weakness (2) Hypothyroidism Current Visit: No Status: Acute Onset Date: 02/01/17 Comment: Same med Code(s): E03.9 - Hypothyroidism, unspecified (3) Benign hypertension Current Visit: No Status: None Comment: Same med (4) Cognitive impairment Current Visit: Yes Status: Acute Comment: Because of her mobility difficulties and weakness we are keeping her in the hospital until we hear the court decision. Because she did not sleep last night we'll write for trazodone tonight. Will DC the catheter. Code(s): R41.89 - Other symptoms and signs involving cognitive functions and awareness
[2018-10-21] MEDS ORDERED: FLUTICASONE PROPIONATE 16 GRAM (120 SPRAYS / BOTTLE) ENOS SCH (13:34)
[2018-10-21] MEDS: traZODone Tab 50 MG TAB PO SCH (20:06)
[2018-10-21] MEDS: FLUTICASONE PROPIONATE 16 GRAM (120 SPRAYS / BOTTLE) ENOS SCH (20:08)
[2018-10-21] MEDS ORDERED: QUEtiapine Tab 25 MG TAB PO SCH (21:00)
[2018-10-22] MEDS: LEVOTHYROXINE 50 MCG TABLET PO SCH (06:41)
[2018-10-22] MEDS: METOPROLOL SUCCINATE 25 MG SR 24H TABLET PO SCH ×2 (10:18→20:11)
[2018-10-22] MEDS: FLUTICASONE PROPIONATE 16 GRAM (120 SPRAYS / BOTTLE) ENOS SCH (10:18)
[2018-10-22] MEDS: ACETAMINOPHEN 325 MG TABLET PO PRN (10:19)
[2018-10-22] MEDS: Beta Carot W/Vit E,C,Min Tab 1 TAB TAB PO SCH (10:19)
[2018-10-22] MEDS: FOLIC ACID 1 MG TABLET PO SCH (10:19)
--- NOTE | 2018-10-22 11:25 | PT.PROG ---
Progress Note Progress Note: S: Pt. states she is doin ok today. c/o back pain. O: Treatment consisted of therapeutic exercises: B LE 12x each; qs, hs, slr, hip abd/add, sit to stands x 3. She then performed bed mobility from supine to sit, edge of bed scooting, transfer from EOB to [facility] with min to mod assist x 1 and use of walker. She required total assist to hygiene as well as doff her brief. She then transferred back to EOB and performed scooting up the edge. She performed a sit to stand with mod assist x 1 to perform sit steps up her bed. Transfer from sit to supine with mod assist x 1. She was left in her bed, with breakfast, nurse and MD in room upon leaving. A: Pt. performed activities with less assist today. She was pleasant and cooperative. She does have difficulty with bed mobility and is unable to perform this independently. She still stands and steps with forward flexed trunk. Skilled therapeutic intervention is required to address strength and mobility concerns. P: Continue per POC to increase strength and activity tolerance. Wendi Kothari, TRAVERSE ROD ASSEMBLER
--- NOTE | 2018-10-22 11:48 | PDOC(PROG) ---
Date of Service: 10/22/18 Time of Service: 11:00 Interval History: Subjective Patient denying new complaint. Catheter was discontinued yesterday, she slept well after taking the trazodone.. Objective : Data - Labs CBC and BMP: 10/19/18 13:45 10/19/18 13:45 Objective : Exam - General General Appearance: No Acute Distress, Cooperative - Head Head Exam: Normal Inspection - Eye Eye Exam: Normal Appearance - ENT ENT Exam: Normal Exam - Neck Neck Exam: Normal Inspection - Rectal Rectal Exam: Deferred - External Exam: Deferred - Extremities Extremities Exam: Normal Inspection - Neurological Neurological Exam: Alert, CN II-XII Intact, No Facial Droop, Speech Intact / Clear - Psychiatric Psychiatric Exam: Normal Affect Assessment and Plan - Patient Problems (1) Weakness Current Visit: No Status: Acute Comment: Continue PT and OT. We are waiting to hear from the court on Tuesday and this will determine where to go from here. Code(s): R53.1 - Weakness (2) Hypothyroidism Current Visit: No Status: Acute Onset Date: 02/01/17 Comment: Same med Code(s): E03.9 - Hypothyroidism, unspecified (3) Benign hypertension Current Visit: No Status: None Comment: Same medication (4) Cognitive impairment Current Visit: Yes Status: Acute Comment: Hopefully we have the decision for court on Tuesday. Code(s): R41.89 - Other symptoms and signs involving cognitive functions and awareness
[2018-10-22] MEDS: traZODone Tab 50 MG TAB PO SCH (20:11)
[2018-10-23] MEDS: LEVOTHYROXINE 50 MCG TABLET PO SCH (05:31)
[2018-10-23] MEDS: METOPROLOL SUCCINATE 25 MG SR 24H TABLET PO SCH (08:22)
[2018-10-23] MEDS: Beta Carot W/Vit E,C,Min Tab 1 TAB TAB PO SCH (08:22)
[2018-10-23] MEDS: FOLIC ACID 1 MG TABLET PO SCH (08:22)
[2018-10-23] MEDS: FLUTICASONE PROPIONATE 16 GRAM (120 SPRAYS / BOTTLE) ENOS SCH (08:39)
[2018-10-23] MEDS: ACETAMINOPHEN 325 MG TABLET PO PRN (09:07)
--- NOTE | 2018-10-23 09:50 | PTI REPORT ---
Thank you for the referral of Ness Montes. She was seen on 10/20/18 for an inpatient evaluation secondary to weakness. SUBJECTIVE: The patient is an 83-year-old female who presents with physical therapy orders secondary to weakness. The patient states that she came to the hospital yesterday. She reported she needed to call the police as her was grabbing onto her right hand as he did not want her to get up and get out of bed and the patient could not get her to let go of her hand. The patient states she was told that she needs to drink more water and take in more food as she does have some dehydration and malnutrition. The patient states that she lives in [place] with her . She states that she primarily uses a wheeled walker to get around. She states that she has stairs in her home and is able to ambulate with the stairs going slowly and use of bilateral hand rails. The patient states that she has had a few falls; she is unable to recall how long ago her falls were, but states that at times she has fallen coming out of the bathroom as she gets her toe caught. She states that she has fallen onto her bed and this was her most recent fall. She states as she was walking out of her bathroom she caught her toe between the colton and fell out onto her bed. She denies any injury from any recent falls. The patient states that she spends most of her time doing paperwork and taking care of finances. The patient states that she does not feel like she needs physical therapy but is willing to participate with the evaluation as it was ordered by the doctor. PAST MEDICAL HISTORY: Past medical history can be found in the patient's medical record. OBJECTIVE FINDINGS: General observations: The patient is sitting up in chair upon PT arrival. She is alert and oriented to her setting. The patient does have a difficult time recalling certain subjective information such as her fall history and daily activity. She does appear agitated to have to participate with the physical therapy evaluation as she states that she doesn't feel like she needs any physical therapy. Strength: A manual muscle test was performed for bilateral lower extremities. In a seated position the patient demonstrates 3/5 bilateral hip strength and 4/5 bilateral knee and ankle strength. Transfers: The patient requires max cueing in order to get her to scoot from the back of the chair to the edge of the chair to perform a sit to stand transfer. The patient's processing with the cueing was difficult and most cues had to be repeated. Once the patient was able to scoot herself to the edge of the chair, it did take 3 attempts for our first sit to stand transfer from the chair and the patient did require mod assist x1 to complete the sit to stand transfer. The patient did complain that with the colton in the hospital she does feel like her feet are slipping out from her, so the therapist did use blocking technique with her feet in order to put them in front of the patient's to prevent any sliding. Once the patient was standing, she required hand hold assist x2 on the walker to maintain an upright position. The patient demonstrated poor endurance as she was only able to stand for approximately 15 seconds before sitting back into the chair. The patient's standing to seated transfer was fair. She did reach back but has a tendency to plop backwards into the chair as she is unable to control her descent. After an adequate rest break, the patient was willing to try the sit to stand transfer again. Our second round of sit to stand transfer did to better than the first one as she required decreased verbal cueing and we only did require two attempts for our second one, but she did still require mod assist. Once again, in the standing position, the patient was able to tolerate approximately 15 seconds before she transferred back into the chair. Ambulation: The patient would not walk with physical therapy during our initial evaluation as she stated that she only uses a wheeled walker and all we had available at the time was a standard walker. We will plan to bring up a wheeled walker this afternoon and attempt ambulatory activity to see how the patient's functional mobility is doing. ASSESSMENT: The patient has fair rehab potential secondary to her age and her past medical history. Problem List: Decreased endurance/activity tolerance Generalized weakness Decreased functional mobility Difficulties with transfers Short-Term Goals: To be met by discharge from inpatient: Patient will be able to transfer from bed to stand safely and independently. Patient will be able to ambulate at least 100 feet with front wheeled walker safely and independently. Patient will be able to ascend and descend 5 stairs with use of bilateral hand rails safely and independently. Long-Term Goals: To be met following discharge from inpatient: Goals will be dependent on how the patient progresses as she is an inpatient. If her functional mobility improves and she is able to move around, she may be appropriate to return home with possible home evaluation to assess her safety at home. At this time the patient is requiring assistance with all of her transfers. TREATMENT PLAN: Patient will be seen B.I.D during the week and one time per day over the weekend as an inpatient to address the above goals and objectives. INITIAL TREATMENT: Treatment today consisted of the initial evaluation and one unit of functional activity. Please see objective findings. Following treatment, the patient's dinner had come, so she was left upright in chair with chair alarm set and call light within reach. [facility] HILL HOSPITALJerri
--- NOTE | 2018-10-23 14:18 | PDOC(PROG) ---
Date of Service: 10/23/18 Time of Service: 14:12 Interval History: No completes of chest pain or shortness of breath. She spent most of our visit trying to convince me that she could walk and ambulate at home. However her "get up and go test" was well over 30 seconds, she required maximum assist actually stand. She has a shuffling gait. No pill-rolling tremor. I reviewed medical records, and she has records consistent with normal pressure hydrocephalus. She had some improvement in symptoms with high-volume tap. No nausea or vomiting. She is quite kyphotic in terms of her gait. Objective : Data - Labs CBC and BMP: 10/19/18 13:45 10/19/18 13:45 Objective : Exam - General General Appearance: No Acute Distress, Cooperative Additional General Exam Details: Vital Signs - Last Taken Temperature 98.1 F 10/23/18 12:30 Pulse Rate 81 10/23/18 12:30 Respiratory Rate 20 10/23/18 12:30 Blood Pressure 108/55 10/23/18 12:30 Pulse Ox 94 10/23/18 12:30 - Eye Eye Exam: No Scleral Icterus - ENT ENT Exam: Mucous Membranes Moist - Neck Neck Exam: JVP is not Raised - Respiratory Respiratory Exam: Clear to Auscultation - Bilaterally, Breathing Non Labored - Cardiovascular Cardiovascular Exam: RRR, No Murmur, No Clicks, No Gallops, No Rubs, No JVD - GI/Abdominal GI/Abdominal Exam: Normal Bowel Sounds, Soft - Extremities Extremities Exam: No Clubbing Present, No Edema Present, No Cyanosis Present - Neurological Neurological Exam: Alert, No Facial Droop, Speech Intact / Clear, Moves All Extremities Equally, Altered (She is oriented to person and place, but not necessarily to time or situation) Additional Neurological Exam Details: It appeared to me that she might have torticollis to the right. It may be slight. - Psychiatric Psychiatric Exam: Normal Affect, Normal Mood Assessment and Plan - Patient Problems (1) Normal pressure hydrocephalus Current Visit: Yes Status: Acute Code(s): G91.2 - (Idiopathic) normal pressure hydrocephalus (2) Cognitive impairment Current Visit: Yes Status: Acute Code(s): R41.89 - Other symptoms and signs involving cognitive functions and awareness (3) Weakness Current Visit: No Status: Acute Code(s): R53.1 - Weakness (4) Benign hypertension Current Visit: Yes Status: Chronic (5) Hypothyroidism Current Visit: Yes Status: Chronic Onset Date: 02/01/17 Code(s): E03.9 - Hypothyroidism, unspecified Qualifiers: Hypothyroidism type: acquired Qualified Code(s): E03.9 - Hypothyroidism, unspecified (6) Rheumatoid arthritis Current Visit: Yes Status: Chronic Onset Date: 12/13/11 Code(s): M06.9 - Rheumatoid arthritis, unspecified Qualifiers: Rheumatoid arthritis location: unspecified site Rheumatoid factor presence: unspecified presence Qualified Code(s): M06.9 - Rheumatoid arthritis, unspecified - Assessment / Plan Additional Assessment/Plan Details: Overall, I examined this patient with occupational therapy present in the room. The patient definitely has dementia. It may be in the moderate category, but I do not believe this patient is safe to live at home alone. Of interest, however, I think that if the patient pursued of [employer] RN shunt, it might improve her symptoms of normal pressure hydrocephalus. That could improve memory overall. I will review to see whether or not TSH, free T4, B12, and folate levels are up to date as well. She clearly had improvement documented in her neurology evaluation post high- volume tap. She was quite kyphotic, examination, I think it would be reasonable to x-ray of the lumbar and thoracic spines. This may be related to osteoporosis as she is on probably. Again, it is clear that this is a patient that is not safe at home, she is not able to do her activities of daily living without assistance, and it's unclear what will happen if she had normal pressure just that was treated to her a bilities to perform these tasks, though it is my experience that that is extremely variable therapy. Time, counseling, coordination of care greater than 35 minutes.
[2018-10-23] MEDS ORDERED: METHOTREXATE SODIUM 2.5 MG PO SCH (14:30)
--- NOTE | 2018-10-23 15:39 | PT.PROG ---
Progress Note Progress Note: S. patient stated that she is very tired this afternoon. O. Patient ambulated 10 feet from the chair to the bed where she performed seated exercises in the form of; long arc quads, marches, heel toe raises, pillow squeezes, clam shells, and resisted knee flexion all x 10 bilaterally, Patient then ambulated 10 feet from the bed to the restroom where she was left with nursing. A. Patient tolerated exercise well, she had no complaints of pain or problems, however during ambulation requires frequent verbal cues to ambulate safely, she would continue to benefit from skilled therapy to increase safety and endurance. P. continue POC.
--- NOTE | 2018-10-23 16:10 | OT AM DAY ---
Diagnosis : Weakness AM - Occupational Therapy S: The therapist spent two hours and 10 minutes completing the Cognitive Performance Test with the patient. It did take the patient longer to process through the tasks. The patient reports that typically she does all of the finances and medication management at her home. She states she typically can get around their house by "hanging onto furniture". Sometimes she does meal prep, but sometimes her does as well per her report. O: The Cognitive Performance Test is a standardized assessment that assess cognitive processing abilities. The end score is an average of how one is cognitively processing through daily tasks. Med box: The patient scored 4.5 out of 6.0. Medication #1: The patient was able to read directions and put medication in correctly. Medication #2: The patient asked, "What time do I put in for the pain medications?". The patient asked this several times. In the end the patient stated, "If I didn't have pain, I wouldn't take it." which is correct. Medication #3: The patient did have some confusion with this medication. It stated to start with Tuesday, every other day, but the patient started the medication on Tuesday. She needed a specific cue to look at the days of the week and she was able to self correct. However, the patient then put the other two medications that were left over in Tuesday box for the next week versus the medication bottle. Medication #4: The patient completed this one correctly. Shopping: The patient scored 4.5 out of 6.0. The patient was asked to pick a pair of gloves that fit her and ones that she can afford with the money in her wallet. The patient only looked at prices, she did not look at the size on the gloves. She picked out the large gloves which would be too large for her hand. After multiple times of counting out the money, she was able to count out the correct amount of change, but it did take six attempts for her to do this. Washing: The patient scored 3.5 out of 5.0. The patient stated out of a box full of items, she would use the Vaseline to wash her hands. She did not use the soap. The patient was not able to stand at the sink in order to wash her hands. She stated, "My back is too bad, I can't stand up. I'm going to fall." At this point during the assessment the patient wanted to try to brush her teeth. Her had come into the room at this point in time and she had reported that she asked him to put the toothpaste on her toothbrush because she couldn't stand long enough to do it. Once the patient had started to brush her teeth, she was only able to get one swipe in her mouth and threw her toothbrush in the sink and stated that she had to sit down right away as her legs were starting to give out on her. She needed max assist to walk from the sink to the bed, which was approximately 6 feet and a lot of cues to straighten her back as she does go into a 70-80 degree flexed position at the hip when walking. [place]: The patient scored 3.5 out of 5.0. The patient was asked to walk over to the toast area. She stated, "I need one to two people to hang onto me." and "Where are we going?" When starting the toast task, she was able to put the bread in the toaster. She kept saying that it was on the highest level for toasting when it was actually on the lowest level. The patient was not able to plug in the toaster on her own. Once the toast popped up the first time, because it was on the lowest setting, she said it needed to be darker. The patient pushed the toast down again and once it started to smell like it was burning she did not know what to do to pop the toast up. The patient stated, "What do I do? What do I do?", and the therapist had to put the lever in the upright position. When doing the toast task, the patient had to sit as her legs were too weak to stand. Not knowing what to do with the toaster is a safety concern. Phone: The patient scored 5.0 out of 6.0. Pt. needed increased time to look up phone number. Overall the patient scored 4.2 out of 5.6. At this level it is highly recommended that the patient have 24-hour care with supervision to max assist, depending on the novelty of the situation and physical abilities. The patient would definitely need supervision of new tasks. She will need assistance to fix less visible errors. Someone should be there to ensure dietary and medication compliance at this level. Someone should provide financial and household management. At this level, patients usually require two to three times longer to complete average tasks in which Ness definitely demonstrates for all tasks. The assistance and safety issues, environmental adaptations, what a patient usually pays attention to, what they can do, and the behavioral patterns can be found in the attached Epi Cognitive Level section. A: At this time, per her cognitive level, the patient is demonstrating the need for 24-hour care. The other level that is even more of a concern to the therapist is her physical limitations and abilities. During the assessment the patient had to walk from the chair in her room to the bathroom. Coming from sit to stand from her chair, the patient required 75% assistance. When walking with the walker, she continually stated that her legs were too weak and that she couldn't do this on her own. She typically would bend her hip anywhere between 50-90 degrees and needed constant cues to stand up. She took steps that were 2- 4" in length and definitely had a shuffled walk. At 14 feet during the walk, the patient had to sit on the edge of her bed to take a break, again needing min to mod assist to keep upright to get there. She then required max assist in order to come from sit to stand from the bed and to ambulate into the bathroom. Again, the patient continually bent over at her back and complained of her arms and legs being weak. She needed cues in order to turn around all the way. She needed assistance to pull her Depends down to knee level in the bathroom. When sitting, she sat on the toilet very fast and unsafe. The patient was able to toilet independently, but when coming from sit to stand to pull her Depends up, she was only able to pull them up half way and needed assistance to complete this task. From that point, the patient did want to try doing hygiene tasks including brushing teeth. As described earlier, the patient was not able to stand for long periods of time. She did hold onto the sink with both hands, but stated that she was too weak to stand to brush her teeth and she could not keep her balance without both hands on the sink and could not take one hand off to complete brushing teeth. The patient had also asked her at one point if he could put toothpaste on her toothbrush like he normally did. He was confused and could not complete this task. The therapist had to complete the task for the patient. Again, when she started to brush her teeth, she threw the toothbrush in the sink after one swipe in her mouth and stated that she was too weak to stand to complete the rest of the task. The patient then needed max assist by this time to walk as she kept bending over on the walker and had difficulty keeping her balance. She walked 6 feet to the bed to rest. Once she had rested for approximately 10 minutes, she was able to ambulate with max assist to the toast area which is where we completed the cognitive assessment. After the toast task, the patient was asked to walk 4 feet to her chair and she stated that she was too weak. We had to push the chair that she was sitting on from the toast task to her normal chair and complete a stand pivot transfer with max assist. At this time the patient's physical abilities are greatly impacting her safety and abilities to complete functional transfers and ADLs safely. She tends to shuffle walk, but even with the wheeled walker she requires max assist after a certain amount of time as her legs and arms do become very weak. She is having difficulty completing simple ADLs such as pulling up her underpants to waist level after going to the bathroom. She is having difficulty standing to complete simple ADLs such as brushing her teeth at the sink. At this time, the patient states that she is fine but she has had several attempts to try to transfer from sit to stand on her own and every time she requires moderate to maximal assistance to come from sit to stand, which poses a high risk of being at home as she more than likely will get stuck on the toilet, on the chair, or in her bed. The patient is weak and has a lot of balance difficulties for completing functional ambulation and tasks. P: Continue seeing patient BID during the week for upper extremity strengthening, ADLs, and overall functional mobility. GRETA
[2018-10-23] MEDS ORDERED: DICLOFENAC SODIUM 4 GM TOPICAL SCH (17:00)
--- NOTE | 2018-10-23 20:38 | DI ---
THORACIC SPINE SERIES, 10/23/2018 2:04 PM: Clinical History: Thoracic kyphosis. Previous Exam: 07/22/2015. Views: Upright AP and lateral views. Vertebral Bodies: On the prior exam, there was a compression fracture of T10. On the current study, t here are compression fractures from T8-T12. Disc Spaces: Appear normal although they are difficult to visualize because of increased lung marking s. Pedicles: Normal. Apophyseal Joints: Normal. Paravertebral Soft Tissues: Paravertebral soft tissue widening is difficult to verify accurately sandoval use of the overlying tissues. Alignment: Normal. Bone Density: Osteoporotic. Additional Findings: The heart size is normal but there is a small left pleural effusion. Additionall y, there are substantial interstitial markings present best seen on the lateral film. This is suspici ous for interstitial pulmonary edema. With a normal heart size, the differential would include acute myocardial infarction, renal failure, and severe aspiration. A AUD[employer]OV[employer]UAL [employer]ODUCTION [employer]IST vascular accident would be unlikel y since the patient is ambulatory. The other possibility is that the interstitial changes are chronic but have developed since the 2015 spine films. Readin. Severe osteoporosis with osteoporotic compression fractures between T8 and T12. The age of the fr actures is difficult to evaluate because of the overlying densities from the lung. 2. There is a prominent interstitial pattern that is new since 2015. With a normal heart, if the int erstitial changes are acute, then the differential would be an acute (silent) myocardial infarction, renal failure, or severe aspiration. If the changes are chronic, then there are new since the 2015 fi lm. 3. Small left pleural effusion.
--- NOTE | 2018-10-23 20:45 | DI ---
LUMBAR SPINE SERIES, 10/23/2018 2:04 PM: Clinical History: Kyphosis. Back pain. Previous Exam: 07/20/2018. Views: Upright AP and lateral views. Vertebral Bodies: Normal lumbar height and size. No lumbar compression fractures. There is a compress ion fracture of T12. Disc Spaces: Severe at L5-S1 disc space narrowing with moderate narrowing at L3-4 Alignment: Normal. Pedicles: Normal. Apophyseal Joints: All level show moderate arthritic changes bilaterally. SI Joints: Mild bilateral sacroiliitis. Sacrum: Old fracture at the sacrococcygeal junction with anterior angulation of the distal fracture f ragments. Bone Density: Severe osteoporosis. Reading: Chronic disc space narrowing at L3-4 and L4-5. Arthritic changes in all of the apophyseal joints bila terally.
[2018-10-23] MEDS: traZODone Tab 50 MG TAB PO SCH (21:29)
[2018-10-23 22:01] LABS: BASOPHILS # (AUTO) 0.01 10*3/UL; BASOPHILS % (AUTO) 0.1 % (0-1); EOSINOPHILS # (AUTO) 0.41 10*3/UL; EOSINOPHILS % (AUTO) 4.8 % (0-8); Hematocrit [HCT] 36.9 % (37.0-47.0); LYMPHOCYTES # (AUTO) 0.85 10*3/uL; MEAN CORPUSCULAR HEMOGLOBIN 30.3 PG (27-31); MEAN CORPUSCULAR HGB CONC 32.5 g/dL (33-37); MEAN CORPUSCULAR VOLUME 93.2 FL (81-99); MONOCYTES # (AUTO) 0.56 10*3/UL (0.3-0.8); MONOCYTES % (AUTO) 6.5 % (5-15); NEUTROPHILS # (AUTO) 6.72 10*3/UL; NEUTROPHILS % (AUTO) 78.2 % (50-80); RED BLOOD COUNT 3.96 10^6/uL (4.20-5.40)
[2018-10-23 22:05] LABS: PLATELET MORPHOLOGY COMMENT NORMAL MORPHOLOGY (NORM); RBC MORPHOLOGY COMMENT NORMAL MORPHOLOGY (NORM); WBC MORPHOLOGY COMMENT NORMAL MORPHOLOGY (NORM)
[2018-10-24] MEDS: LEVOTHYROXINE 50 MCG TABLET PO SCH (05:19)
[2018-10-24 06:01] LABS: BLOOD UREA NITROGEN 18 mg/dL (7-22)
--- NOTE | 2018-10-24 08:19 | DI ---
AP CHEST X-RAY, 10/24/2018 7:00 AM : Clinical History: Pleural effusion. Previous Exam: 10/19/2018. Soft Tissues: No acute soft tissue abnormality. Surgical clips are present toward the right lateral c hest wall in this patient may have had a previous breast biopsy. Bones: Osteoporotic. No evidence of bony metastatic disease. Heart: Normal heart for this degree of inspiration and the AP projection. The pulmonary vessels are m ore prominent and plethoric and there may be mild CHF. 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 Lungs: Left lower lobe atelectasis. Effusion(s): Small left pleural effusion. Mediastinum: Normal mediastinum. Nodules: No pulmonary nodules. Readin. Interval development of interstitial changes suggesting CHF with a normal heart size. This raises the possibility of an acute WI or renal failure. A MACHINING DEPARTMENT SUPERVISOR vascular accident can also produces pattern. 2. Left lower lobe atelectasis with a small left pleural effusion.
[2018-10-24] MEDS: Beta Carot W/Vit E,C,Min Tab 1 TAB TAB PO SCH (09:00)
[2018-10-24] MEDS: FOLIC ACID 1 MG TABLET PO SCH (09:00)
[2018-10-24] MEDS: FLUTICASONE PROPIONATE 16 GRAM (120 SPRAYS / BOTTLE) ENOS SCH (10:24)
--- NOTE | 2018-10-24 10:42 | OT PM DAY ---
Diagnosis : Weakness PM - Occupational Therapy S: The patient reports she is doing fine. She states she would like to work on upper extremity strengthening tasks today due to some weakness; however, she reports she does not want to get out of bed. O: The patient performed upper extremity strengthening tasks bilaterally with yellow theraband including shoulder extension, shoulder flexion, biceps curls, elbow flexion/extension, shoulder adduction, and internal/external rotation x15 repetitions each. A: The patient was able to complete therapeutic exercises with minimal rest breaks and may benefit from continued therapeutic exercise with a focus on upper extremity strengthening and increasing activity tolerance and possibly sitting edge of bed to increase more dynamic sitting and/or standing balance tasks. P: Continue seeing patient BID during the week and one time per day over the weekend for upper extremity strengthening, ADLs, and overall functional mobility. MTDD
--- NOTE | 2018-10-24 11:03 | PT.PROG ---
Progress Note Progress Note: S. Patient agreed to do some exercises sitting on the edge of bed. O. Patient ambulated 10 feet to the restroom and 10 feet back to bed where she performed seated exercises in the form of; long arc quads, marches, heel toe raises, pillow squeezes, clam shells, resisted knee flexion all x 10 bilaterally with yellow thera-band, Patient performed sit to stands x4 then transferred back to bed where she was left with alarm and call light. A. Patient tolerated therapy fair, she continues to require mod assist with bed mobility, transfers and ambulation, she requires frequent verbal cues to stay on task and complete all exercises safely. Patient would continue to benefit from skilled therapy to increase strength endurance and safety at this time. P. Continue POC.
--- NOTE | 2018-10-24 12:08 | OT.PROG ---
Progress Note Progress Note: S: pt did not want to get up out of bed to bad. O: Pt was seen in her room and completed exercises on EOB. She completed Ue exercises in all planes with YTB x15 w/BUE's. She was returned to her bed in supine position when finished. A: pt participated about as well as she could today. Displays low activity tolerance. P: Continue per POC.
--- NOTE | 2018-10-24 13:10 | PDOC(PROG) ---
Date of Service: 10/24/18 Time of Service: 13:04 Interval History: No complaints of chest pain, shortness breath, nausea or vomiting. X-rays show several new compression fractures compared to prior imaging. These were in the thoracic region. I reviewed with pharmacy, the patient had a banana bag and one bag of normal saline through the hospital stay thus far. The patient states to me that she was told she was not a candidate for a shunt placement despite notes in the chart from neurology stating the patient had some gains in terms of her gait. The patient states she could not visit with neurosurgery in [place] due to lack of inability to get up there for evaluation. Objective : Data - Labs CBC and BMP: 10/23/18 21:58 10/24/18 05:40 Objective : Exam - General General Appearance: No Acute Distress, Cooperative Additional General Exam Details: Vital Signs - Last Taken Temperature 97.6 F 10/24/18 11:21 Pulse Rate 92 10/24/18 11:21 Respiratory Rate 20 10/24/18 11:21 Blood Pressure 98/52 10/24/18 11:21 Pulse Ox 93 10/24/18 11:21 - Eye Eye Exam: No Scleral Icterus - ENT ENT Exam: Mucous Membranes Moist - Neck Neck Exam: JVP is not Raised - Respiratory Respiratory Exam: Clear to Auscultation - Bilaterally, Breathing Non Labored - Cardiovascular Cardiovascular Exam: RRR, No Murmur, No Clicks, No Gallops, No Rubs, No JVD - GI/Abdominal GI/Abdominal Exam: Normal Bowel Sounds, Non Tender, Non Distended, Soft - Extremities Extremities Exam: No Clubbing Present, No Edema Present, No Cyanosis Present - Neurological Neurological Exam: Alert, No Facial Droop, Speech Intact / Clear, Moves All Extremities Equally Additional Neurological Exam Details: Confabulates in terms of her ability to ambulate. She feels that she is able to get up on her own without assistance, which is just not true. In addition, she states that she is walking upright which is not true. She is quite kyphotic in terms of her stance in her gait. Assessment and Plan - Patient Problems (1) Normal pressure hydrocephalus Current Visit: Yes Status: Acute Code(s): G91.2 - (Idiopathic) normal pressure hydrocephalus (2) Cognitive impairment Current Visit: Yes Status: Acute Code(s): R41.89 - Other symptoms and signs involving cognitive functions and awareness (3) Weakness Current Visit: No Status: Acute Code(s): R53.1 - Weakness (4) Benign hypertension Current Visit: Yes Status: Chronic (5) Hypothyroidism Current Visit: Yes Status: Chronic Onset Date: 02/01/17 Code(s): E03.9 - Hypothyroidism, unspecified Qualifiers: Hypothyroidism type: acquired Qualified Code(s): E03.9 - Hypothyroidism, unspecified (6) Rheumatoid arthritis Current Visit: Yes Status: Chronic Onset Date: 12/13/11 Code(s): M06.9 - Rheumatoid arthritis, unspecified Qualifiers: Rheumatoid arthritis location: unspecified site Rheumatoid factor presence: unspecified presence Qualified Code(s): M06.9 - Rheumatoid arthritis, unspecified (7) Thoracic compression fracture Current Visit: Yes Status: Acute Code(s): S22.000A - Wedge compression fracture of unspecified thoracic vertebra, initial encounter for closed fracture Qualifiers: Encounter type: initial encounter Fracture type: closed Qualified Code(s): S22.000A - Wedge compression fracture of unspecified thoracic vertebra, initial encounter for closed fracture - Assessment / Plan Additional Assessment/Plan Details: Further thoracic compression fractures, we will order a brace. I will discuss with neurology regarding recommendations on possible [facility] shunt. Await legal guardian hearing results. At this point, I will test for flu. I do not see any evidence of myocardial infarction but brain natruretic peptide is elevated. There is a small effusion and I'm not sure the cause of that. May need to consider looking for pulmonary emboli as well.
--- NOTE | 2018-10-24 16:51 | PT.PROG ---
Progress Note Progress Note: Patient refused therapy due to being very tired and busy this afternoon. Patient refused back brace due feeling it may be too uncomfortable.
[2018-10-24] MEDS: traZODone Tab 50 MG TAB PO SCH (21:01)
--- NOTE | 2018-10-24 22:05 | DI ---
CT ANGIOGRAM OF THE CHEST, 10/24/2018 1:11 PM : Clinical History: Left pleural effusion. Previous Exam: 02/04/2013. Technique: Scans from base of neck to lung bases with IV contrast. Bolus tracking protocol was used f or timing the injection. Non-MIPS and MIPS sagittal/coronal images generated. IV Contrast: 45 mL of Isovue 300. Base of Neck: Normal. Nodes: Normal axillary, supraclavicular, mediastinal, and hilar lymph nodes. Heart: Small pericardial effusion. Calcifications of the proximal and middle thirds of the LAD and th e proximal portion of the left circumflex artery. There are calcifications or possibly even stents in the proximal half of the right coronary artery with calcifications extending to the PDA. Aorta: Normal thoracic aorta. No aneurysm or dissection. Pulmonary Arteries: Normal. No pulmonary emboli or infarcts; mild to moderate pulmonary hypertension. Lungs: Left lower lobe atelectasis. Rosalia A and Rosalia B lines are present either representing acute interstitial edema or chronic interstitial pulmonary fibrosis. Effusion(s): Small left pleural effusion. Nodules: None. Bony Structures: Normal visualized portions of ribs, sternum, scapulae, clavicles, and shoulders. Mul tiple old compression fractures are present in the upper and lower thoracic spine. Limited Upper Abdomen: Normal adrenal glands and spleen. Normal limited views of liver and pancreas. READIN. Normal CTA of the chest. There are no pulmonary emboli or pulmonary infarcts. Mild to moderate pu lmonary arterial hypertension. 2. Small left pleural effusion with left lower lobe atelectasis. Rosalia A Rosalia B lines indicate ei ther acute interstitial edema or chronic interstitial pulmonary fibrosis. 3. Small pericardial effusion. Coronary artery calcifications in the LAD, right coronary, and left c ircumflex artery.
[2018-10-25] MEDS: ACETAMINOPHEN 325 MG TABLET PO PRN ×2 (00:57→21:06)
[2018-10-25] MEDS: LEVOTHYROXINE 50 MCG TABLET PO SCH (05:20)
[2018-10-25] MEDS: Beta Carot W/Vit E,C,Min Tab 1 TAB TAB PO SCH (09:22)
[2018-10-25] MEDS: IBUPROFEN 400 MG TABLET PO PRN (09:22)
[2018-10-25] MEDS: FOLIC ACID 1 MG TABLET PO SCH (09:22)
[2018-10-25] MEDS: FLUTICASONE PROPIONATE 16 GRAM (120 SPRAYS / BOTTLE) ENOS SCH (11:37)
[2018-10-25] MEDS ORDERED: CHOLECALCIFEROL 1000 IU TABLET PO ONE (15:12)
--- NOTE | 2018-10-25 15:12 | PDOC(PROG) ---
Date of Service: 10/25/18 Time of Service: 11:15 Interval History: no chest pain, SOB, N/V, but has back pain. Objective : Data - Labs CBC and BMP: 10/23/18 21:58 10/24/18 05:40 Objective : Exam - General General Appearance: No Acute Distress, Cooperative Additional General Exam Details: Vital Signs - Last Taken Temperature 97.5 F 10/25/18 11:42 Pulse Rate 98 10/25/18 11:42 Respiratory Rate 20 10/25/18 11:42 Blood Pressure 104/43 10/25/18 11:42 Pulse Ox 92 10/25/18 11:42 - Eye Eye Exam: No Scleral Icterus - ENT ENT Exam: Mucous Membranes Moist - Neck Neck Exam: JVP is not Raised - Respiratory Respiratory Exam: Clear to Auscultation - Bilaterally, Breathing Non Labored - Cardiovascular Cardiovascular Exam: RRR, No Murmur, No Clicks, No Gallops, No Rubs, No JVD - GI/Abdominal GI/Abdominal Exam: Normal Bowel Sounds, Non Tender, Non Distended, Soft - Extremities Extremities Exam: No Clubbing Present, No Edema Present, No Cyanosis Present - Neurological Neurological Exam: Alert, No Facial Droop, Speech Intact / Clear, Moves All Extremities Equally, Altered (oriented to person, not to time or situation.), Abnormal Gait Assessment and Plan - Patient Problems (1) Thoracic compression fracture Current Visit: Yes Status: Acute Code(s): S22.000A - Wedge compression fracture of unspecified thoracic vertebra, initial encounter for closed fracture Qualifiers: Encounter type: initial encounter Fracture type: closed Qualified Code(s): S22.000A - Wedge compression fracture of unspecified thoracic vertebra, initial encounter for closed fracture (2) Weakness Current Visit: No Status: Acute Code(s): R53.1 - Weakness (3) Benign hypertension Current Visit: Yes Status: Chronic (4) Hypothyroidism Current Visit: Yes Status: Chronic Onset Date: 02/01/17 Code(s): E03.9 - Hypothyroidism, unspecified Qualifiers: Hypothyroidism type: acquired Qualified Code(s): E03.9 - Hypothyroidism, unspecified (5) Rheumatoid arthritis Current Visit: Yes Status: Chronic Onset Date: 12/13/11 Code(s): M06.9 - Rheumatoid arthritis, unspecified Qualifiers: Rheumatoid arthritis location: unspecified site Rheumatoid factor presence: unspecified presence Qualified Code(s): M06.9 - Rheumatoid arthritis, unspecified (6) Normal pressure hydrocephalus Current Visit: Yes Status: Acute Code(s): G91.2 - (Idiopathic) normal pr essure hydrocephalus (7) Dementia Current Visit: Yes Status: Acute Code(s): F03.90 - Unspecified dementia without behavioral disturbance Qualifiers: Dementia type: Alzheimer's disease Alzheimer's disease onset: late-onset Dementia behavioral disturbance: without behavioral disturbance Qualified Code(s): G30.1 - Alzheimer's disease with late onset; F02.80 - Dementia in other diseases classified elsewhere without behavioral disturbance - Assessment / Plan Additional Assessment/Plan Details: continue PT and OT not a candidate for shunt due to advancing dementia anticipate SNF discharge tomorrow vitamin D, consider possibly prolia or other osteoporosis medication, but will defer osteoporosis med to primary physician
--- NOTE | 2018-10-25 16:15 | PT.PROG ---
Progress Note Progress Note: Patient refused therapy this morning, after several attempts patient reported she was not going to do therapy.
[2018-10-25] MEDS: traZODone Tab 50 MG TAB PO SCH (21:00)
[2018-10-26] MEDS: LEVOTHYROXINE 50 MCG TABLET PO SCH (05:29)
[2018-10-26] MEDS ORDERED: CHOLECALCIFEROL 1000 IU TABLET PO SCH (09:00)
[2018-10-26] MEDS: Beta Carot W/Vit E,C,Min Tab 1 TAB TAB PO SCH (10:12)
[2018-10-26] MEDS: ACETAMINOPHEN 325 MG TABLET PO PRN ×2 (10:12→10:25)
[2018-10-26] MEDS: FOLIC ACID 1 MG TABLET PO SCH (10:12)
[2018-10-26] MEDS: FLUTICASONE PROPIONATE 16 GRAM (120 SPRAYS / BOTTLE) ENOS SCH (10:12)
[2018-10-26] MEDS ORDERED: ACETAMINOPHEN 325 MG TABLET PO ONE (10:17)
[2018-10-26] MEDS: IBUPROFEN 400 MG TABLET PO PRN (10:24)
--- NOTE | 2018-10-26 10:32 | DCSUMMARY ---
Hospitalization Summary Admit Date: 10/19/2018 Discharge Date: 10/26/18 Primary Diagnosis:: Alzheimer's dementia, failure to thrive Hospital Course: This is an-year-old female that has evolved worsening dementia over time, and she has developed failure to thrive and cannot perform her activities of daily living. After several calls and checks by department of family services, and the police, the patient was found to have rotten food in the home, very disheveled, and essentially unable to care for herself. She was evaluated from an occupational therapy standpoint and a mocha examination confirmed dementia. She has some medical issues including rheumatoid arthritis, tachycardia which is treated with a beta kyara, amongst other medical issues that seem stable at this time. She also has a known gait instability related to severe osteoporosis, and multiple compression fractures. She is quite kyphotic in the thoracic spine due to these compression fractures. Imaging revealed possible fluid overload, but I am not convinced that this is case. Clinically she is not hypoxic, does not have any shortness of breath. She has had a cough, but influenza negative. Her breath sounds are equal bilaterally and nonlabored. She has some evidence of bladder overactivity, but I'm very reluctant to place her on medications due to anticholinergic side effects with worsening dementia and delirium in the setting of those medications. She does not sleep overly well, but does not seem to have overly aggressive behaviors when I have examined her. A guardianship was placed and she has 2 sisters that have assumed guardianship and they have requested that the patient go to [facility]. She was accepted for admission there today I did follow up on this normal pressure hydrocephalus issue and the patient did not have a very good response on her last lumbar puncture, high volume. I spoke directly with the neurologist about this finding in the clinic. With her worsening dementia, lack of response on last lumbar puncture, she is not a candidate for a shunt. We found multiple new compression fractures in the thoracic spine that I think are continuing to the patient's stance, gait, and overall complaints of back pain and coccyx pain. The patient had some severe kyphosis I noticed on exam and so I did a thoracic imaging and found several new compression fractures compared to old films. I think she has some severe osteoporosis but I will defer management be on vitamin D and calcium to her primary physician. Strangely, there were findings of potential fluid overload and suggestions of possible congestive heart failure or myocardial infarction which did not prove to be the case. Her NT proBNP was elevated but I'm really not sure what that means with no symptoms. She had a negative troponin. She did not complain of any chest pain, or anginal or exertional symptoms. I tested her for influenza and that was negative as well. Difficult to know how much further to workup that radiologic finding, but my ove rall impression reviewing the chest x-ray, the last one, is that the patient does not have any evidence of acute cardiac pulmonary disease process, when accompanying the film with the patient's clinical presentation. Today, she complains mostly of being tired, no chest pain, no shortness of breath. Assessment and Plan: 1. As per discharge assessments noted 2. Disposition: Patient is discharged to [facility] 3. Condition on discharge, stable and improved. 4. Diet: regular diet 5. Activities: resume normal activities 6. Follow-Up: 1. Dr. Heredia 7. Medications at the Time of Discharge: Home Medications Medication Instructions Recorded Confirmed Type Ca Carbonate/Vitamin D3/Vit K 1 ea PO BID 12/13/11 10/19/18 History [Viactiv Soft Chew Tablet] Multivitamins W-Minerals/Lut 1 tab ORAL QD tab 12/13/11 10/19/18 History [Centrum Silver Tablet] folic acid 1 mg tablet 1 mg PO QDAY #30 tab 05/11/18 10/19/18 Rx Acetaminophen [Tylenol] 650 mg PO Q6H PRN tab 07/24/18 10/19/18 Rx levothyroxine 50 mcg tablet 50 mcg PO QDAY #30 tab 08/29/18 10/19/18 Rx methotrexate sodium 2.5 mg tablet 2.5 mg PO 2XW #28 tab 09/12/18 10/19/18 Rx Acetaminophen [Tylenol] 650 mg PO Q6H PRN tab 10/26/18 Rx Cholecalciferol [Vitamin D3] 1,000 iu PO DAILY tab 10/26/18 Rx Ibuprofen [Motrin] 200 mg PO TID PRN tab 10/26/18 Rx Metoprolol Succinate 50 mg PO DAILY #30 tab.er.24h 10/26/18 Rx This is an observation discharge. Exam - Vitals Vital Signs: Vital Signs Temperature 98 F Temperature Source Temporal Artery Scan Pulse Rate [Pulse Oximeter] 84 Pulse Rate 89 Respiratory Rate 18 Blood Pressure [Left Arm] 143/68 Blood Pressure 116/62 Pulse Ox 90 Oxygen Delivery Method Room Air Height 5 ft 3 in Weight 113 lb 9.6 oz - General General Appearance: No Acute Distress, Cooperative - Eye Eye Exam: POSITIVE: No Scleral Icterus - ENT ENT Exam: POSITIVE: Mucous Membranes Moist - Neck Neck Exam: JVP is not Raised - Respiratory Respiratory Exam: POSITIVE: Clear to Auscultation - Bilaterally, Breathing Non Labored - Cardiovascular Cardiovascular Exam: POSITIVE: RRR, No Murmur, No Clicks, No Gallops, No Rubs, No JVD - GI/Abdominal GI/Abdominal Exam: POSITIVE: Normal Bowel Sounds, Non Tender, Non Distended, Soft - Extremities Extremities Exam: POSITIVE: No Clubbing Present, No Edema Present, No Cyanosis Present - Neurological Neurological Exam: POSITIVE: Alert, No Facial Droop, Speech Intact / Clear, Moves All Extremities Equally Data Peritnent Studies: 10/19/18 10/19/18 10/19/18 13:13 13:45 13:45 WBC Hgb Hct Plt Count PT 10.4 INR 1.02 VBG pH VBG pCO2 VBG HCO3 VBG Base Excess Sodium Potassium Chloride Carbon Dioxide Anion Gap BUN Creatinine BUN/Creatinine Ratio Glucose Calculated Osmolality Lactic Acid Calcium 10.1 Magnesium 2.2 Total Bilirubin 0.5 AST 49 H ALT 45 Alkaline Phosphatase 83 Troponin I C-Reactive Protein 2.5 H NT-Pro-B Natriuret Pep 423 Total Protein 6.4 Albumin 3.6 Globulin 2.8 Albumin/Globulin Ratio 1.20 L Lipase 135 Vitamin B12 Vitamin D 25-Hydroxy Serum Folate TSH Free T4 Ur Culture Indicated? Culture not set 10/19/18 10/19/18 10/19/18 13:45 13:45 14:03 WBC Hgb Hct Plt Count PT INR VBG pH 7.44 H VBG pCO2 48 VBG HCO3 33 H VBG Base Excess 8 H Sodium Potassium Chloride Carbon Dioxide Anion Gap BUN Creatinine BUN/Creatinine Ratio Glucose Calculated Osmolality Lactic Acid 1.4 Calcium Magnesium Total Bilirubin AST ALT Alkaline Phosphatase Troponin I C-Reactive Protein NT-Pro-B Natriuret Pep Total Protein Albumin Globulin Albumin/Globulin Ratio Lipase Vitamin B12 Vitamin D 25-Hydroxy Serum Folate TSH 2.93 Free T4 1.55 Ur Culture Indicated? 10/23/18 10/23/18 10/23/18 15:03 15:03 21:58 WBC 8.59 Hgb 12.0 Hct 36.9 L Plt Count 279 PT INR VBG pH VBG pCO2 VBG HCO3 VBG Base Excess Sodium Potassium Chloride Carbon Dioxide Anion Gap BUN Creatinine BUN/Creatinine Ratio Glucose Calculated Osmolality Lactic Acid Calcium Magnesium Total Bilirubin AST ALT Alkaline Phosphatase Troponin I C-Reactive Protein NT-Pro-B Natriuret Pep Total Protein Albumin Globulin Albumin/Globulin Ratio Lipase Vitamin B12 683 Vitamin D 25-Hydroxy 41.5 Serum Folate > 20.0 H TSH Free T4 Ur Culture Indicated? 10/24/18 10/24/18 05:40 05:40 WBC Hgb Hct Plt Count PT INR VBG pH VBG pCO2 VBG HCO3 VBG Base Excess Sodium 139 Potassium 4.3 Chloride 105 Carbon Dioxide 29 Anion Gap 5 BUN 18 Creatinine 0.3 L BUN/Creatinine Ratio 60.00 H Glucose 85 Calculated Osmolality 288.0 Lactic Acid Calcium 9.4 Magnesium Total Bilirubin AST ALT Alkaline Phosphatase Troponin I < 0.012 C-Reactive Protein NT-Pro-B Natriuret Pep 994 H Total Protein Albumin Globulin Albumin/Globulin Ratio Lipase Vitamin B12 Vitamin D 25-Hydroxy Serum Folate TSH Free T4 Ur Culture Indicated? Procedures: [address] [place] [address] PH: DD: [phone] FAX: [phone] ~DIAGNOSTIC IMAGING REPORT~ Patient: Ness Montes Prasanth : 1935 Sex: F Age: 83 Exam Name: CT CTA Chest Non-Coronary WWO Exam Date: 10/24/18 Report # : [id number] CPT Code: 13456 EMR/MR #: [id number] Ordering: KADEN GIANG Admiting: LUIS PAUL MD. Primary: Nba Heredia MD Attending: LUIS PAUL MD. Signed CT ANGIOGRAM OF THE CHEST, 10/24/2018 1:11 PM : Clinical History: Left pleural effusion. Previous Exam: 02/04/2013. Technique: Scans from base of neck to lung bases with IV contrast. Bolus tracking protocol was used for timing the injection. Non-MIPS and MIPS sagittal/coronal images generated. IV Contrast: 45 mL of Isovue 300. Base of Neck: Normal. Nodes: Normal axillary, supraclavicular, mediastinal, and hilar lymph nodes. Heart: Small pericardial effusion. Calcifications of the proximal and middle th irds of the LAD and the proximal portion of the left circumflex artery. There are calcifications or possibly even stents in the proximal half of the right coronary artery with calcifications extending to the PDA. Aorta: Normal thoracic aorta. No aneurysm or dissection. Pulmonary Arteries: Normal. No pulmonary emboli or infarcts; mild to moderate pulmonary hypertension. Lungs: Left lower lobe atelectasis. Rosalia A and Rosalia B lines are present either representing acute interstitial edema or chronic interstitial pulmonary fibrosis. Effusion(s): Small left pleural effusion. Nodules: None. Bony Structures: Normal visualized portions of ribs, sternum, scapulae, clavicles, and shoulders. Multiple old compression fractures are present in the upper and lower thoracic spine. Limited Upper Abdomen: Normal adrenal glands and spleen. Normal limited views of liver and pancreas. READIN. Normal CTA of the chest. There are no pulmonary emboli or pulmonary infarcts. Mild to moderate pulmonary arterial hypertension. 2. Small left pleural effusion with left lower lobe atelectasis. Rosalia A Rosalia B lines indicate either acute interstitial edema or chronic interstitial pulmonary fibrosis. 3. Small pericardial effusion. Coronary artery calcifications in the LAD, right coronary, and left circumflex artery. Dictated By: 10/24/18 4607 CHRIS JUAN MD. Signed By: 10/24/18 4743 CHRIS JUAN MD. [address] [facility] [place] [address] PH: DD: [phone] FAX: [phone] ~DIAGNOSTIC IMAGING REPORT~ Patient: Ness Montes V : 1935 Sex: F Age: 83 Exam Name: XR CXR 1VW Exam Date: 10/24/18 Report # : [id number] CPT Code: 02900 EMR/MR #: [id number] Ordering: KADEN GIANG Admiting: LUIS PAUL MD. Primary: Nba Heredia MD Attending: LUIS PAUL MD. Signed AP CHEST X-RAY, 10/24/2018 7:00 AM : Clinical History: Pleural effusion. Previous Exam: 10/19/2018. Soft Tissues: No acute soft tissue abnormality. Surgical clips are present toward the right lateral chest wall in this patient may have had a previous breast biopsy. Bones: Osteoporotic. No evidence of bony metastatic disease. Heart: Normal heart for this degree of inspiration and the AP projection. The pulmonary vessels are more prominent and plethoric and there may be mild CHF. With the normal heart size, the differential would be between acute renal failure, acute AR, or a IMPORT/EXPORT ADMINISTRATOR vascular accident. Lungs: Left lower lobe atelectasis. Effusion(s): Small left pleural effusion. Mediastinum: Normal mediastinum. Nodules: No pulmonary nodules. Readin. Interval development of interstitial changes suggesting CHF with a normal heart size. This raises the possibility of an acute AR or renal failure. A IMPORT/EXPORT ADMINISTRATOR vascular accident can also produces pattern. 2. Left lower lobe atelectasis with a small left pleural effusion. Dictated By: 10/24/18 0809 CHRIS JUAN MD. Signed By: 10/24/1819 CHRIS JUAN MD. [address] [facility] [place] [address] PH: DD: [phone] FAX: [phone] ~DIAGNOSTIC IMAGING REPORT~ Patient: Ness Montes V : 1935 Sex: F Age: 83 Exam Name: XR T-SPINE 2VW Exam Date: 10/23/18 Report # : [id number] CPT Code: 68526 EMR/MR #: [id number] Ordering: KADEN GIANG Admiting: LUIS PAUL MD. Primary: Nba Heredia MD Attending: LUIS PAUL MD. Signed THORACIC SPINE SERIES, 10/23/2018 2:04 PM: Clinical History: Thoracic kyphosis. Previous Exam: 07/22/2015. Views: Upright AP and lateral views. Vertebral Bodies: On the prior exam, there was a compression fracture of T10. On the current study, there are compression fractures from T8-T12. Disc Spaces: Appear normal although they are difficult to visualize because of increased lung markings. Pedicles: Normal. Apophyseal Joints: Normal. Paravertebral Soft Tissues: Paravertebral soft tissue widening is difficult to verify accurately because of the overlying tissues. Alignment: Normal. Bone Density: Osteoporotic. Additional Findings: The heart size is normal but there is a small left pleural effusion. Additionally, there are substantial interstitial markings present best seen on the lateral film. This is suspicious for interstitial pulmonary edema. With a normal heart size, the differential would include acute myocardial infarction, renal failure, and severe aspiration. A IMPORT/EXPORT ADMINISTRATOR vascular accident would be unlikely since the patient is ambulatory. The other possibility is that the interstitial changes are chronic but have developed since the 2015 spine films. Readin. Severe osteoporosis with osteoporotic compression fractures between T8 and T12. The age of the fractures is difficult to evaluate because of the overlying densities from the lung. 2. There is a prominent interstitial pattern that is new since 2015. With a normal heart, if the interstitial changes are acute, then the differential would be an acute (silent) myocardial infarction, renal failure, or severe aspiration. If the changes are chronic, then there are new since the 2015 film. 3. Small left pleural effusion. Dictated By: 10/23/182020 CHRIS JUAN MD. Signed By: 10/23/182037 CHRIS JUAN MD. [address] [facility] [place] [address] PH: DD: [phone] FAX: [phone] ~DIAGNOSTIC IMAGING REPORT~ Patient: Ness Montes V : 1935 Sex: F Age: 83 Exam Name: L-SPINE MIN 4 VW Exam Date: 10/23/18 Report # : [id number] CPT Code: 65375 EMR/MR #: [id number] Ordering: KADEN GIANG Admiting: LUIS PAUL MD. Primary: Nba Heredia MD Attending: LUIS PAUL MD. Signed LUMBAR SPINE SERIES, 10/23/2018 2:04 PM: Clinical History: Kyphosis. Back pain. Previous Exam: 07/20/2018. Views: Upright AP and lateral views. Vertebral Bodies: Normal lumbar height and size. No lumbar compression fractures. There is a compression fracture of T12. Disc Spaces: Severe at L5-S1 disc space narrowing with moderate narrowing at L3- 4 Alignment: Normal. Pedicles: Normal. Apophyseal Joints: All level show moderate arthritic changes bilaterally. SI Joints: Mild bilateral sacroiliitis. Sacrum: Old fracture at the sacrococcygeal junction with anterior angulation of the distal fracture fragments. Bone Density: Severe osteoporosis. Reading: Chronic disc space narrowing at L3-4 and L4-5. Arthritic changes in all of the apophyseal joints bilaterally. Dictated By: 10/23/182033 CHRIS JUAN MD. Signed By: 10/23/182044 CHRIS JUAN MD. Patient Problems - Patient Problem List (1) Dementia Current Visit: Yes Status: Acute Code(s): F03.90 - Unspecified dementia without behavioral disturbance Qualifiers: Dementia type: Alzheimer's disease Alzheimer's disease onset: late-onset Dementia behavioral disturbance: without behavioral disturbance Qualified Code(s): G30.1 - Alzheimer's disease with late onset; F02.80 - Dementia in other diseases classified elsewhere without behavioral disturbance Category: Medical (2) Thoracic compression fracture Current Visit: Yes Status: Acute Code(s): S22.000A - Wedge compression frac ture of unspecified thoracic vertebra, initial encounter for closed fracture Qualifiers: Encounter type: initial encounter Fracture type: closed Qualified Code(s): S22.000A - Wedge compression fracture of unspecified thoracic vertebra, initial encounter for closed fracture Category: Medical (3) Weakness Current Visit: No Status: Acute Code(s): R53.1 - Weakness Category: Medical (4) Benign hypertension Current Visit: Yes Status: Chronic Category: Medical (5) Hypothyroidism Current Visit: Yes Status: Chronic Onset Date: 02/01/17 Code(s): E03.9 - Hypothyroidism, unspecified Qualifiers: Hypothyroidism type: acquired Qualified Code(s): E03.9 - Hypothyroidism, unspecified Category: Medical (6) Rheumatoid arthritis Current Visit: Yes Status: Chronic Onset Date: 12/13/11 Comment: Code(s): M06.9 - Rheumatoid arthritis, unspecified Qualifiers: Rheumatoid arthritis location: unspecified site Rheumatoid factor presence: unspecified presence Qualified Code(s): M06.9 - Rheumatoid arthritis, unspecified Category: Medical (7) Normal pressure hydrocephalus Current Visit: Yes Status: Chronic Code(s): G91.2 - (Idiopathic) normal pressure hydrocephalus Category: Medical
--- NOTE | 2018-10-26 10:57 | PT.PROG ---
Progress Note Progress Note: S. Patient stated that she did not want to do much therapy today. O. patient performed exercises in bed in the form of; heel slides, quad sets, ankle pumps, short arc quads, glute squeezes, supine clam shells and pillow squeezes all x 10 bilaterally. Patient was left in bed with alarm and call light. A. patient tolerated therapy fair, she continues to refuse to do more therapy. She would continue to benefit from therapy to increase strength and endurance. P. Continue POC.
[2018-10-26 11:20] VITALS: BP 137/67; RESP 17; TEMP 98.3; O2SAT 91
--- NOTE | 2018-10-27 08:15 | OT PM DAY ---
Diagnosis : Weakness PM - Occupational Therapy S: The patient reports that her back feels better and that she is trying to straighten up more. The patient stated in the middle of the night "all of the sudden my back is straighter". O: Today the patient was able to ambulate into the bathroom with straighter posture. She still needed mod assist to keep her balance and sitting on the normal toilet was difficult. The patient has difficulty controlling her descent to the toilet. The patient was independent with toilet hygiene while sitting. To come from sit to stand, the patient required max assist and a lot of verbal cues and she wanted the therapist's foot in front of her foot, even though she had gripper socks on. The patient then walked from the toilet to the bed. Once edge of bed the patient did agree to complete upper extremity strengthening exercises including yellow theraband resisted biceps curls, shoulder extension, shoulder adduction, triceps, internal/external rotation, and rows x10 repetitions bilaterally. The patient completed bed mobility with increased time and max assist to move her left lower extremity into bed. Once in bed the patient required max assist x2 to get her to the head of the bed. She has a lot of difficulty completing bridges as well as mobility to the head of the bed. A: The patient still requires a lot of assistance with sit to stands from a lower surface and with bed mobility. The patient was participating with upper extremity exercises. P: Continue seeing patient BID during the week and one time per day over the weekend for upper extremity strengthening, ADLs, and overall functional mobility. MTDD
== END 2018-10-26 13:41 ==
LOC: MED/SURG 13:08 → ER 13:08 → MED/SURG 18:40
PROVIDERS: ADMIT Internal Medicine; ATTEND Internal Medicine